=== PATIENT | female | born 1975 | race Caucasian/White ===

== ENCOUNTER 2022-10-01 00:42 | Observation (INO) | payer OTHER ==
[2022-10-01] MEDS ORDERED: SODIUM CHLORIDE 0.9% 1,000 ML IV STA (01:09)
[2022-10-01] MEDS ORDERED: diphenhydrAMINE 50 MG/ML 1 ML VIAL IVP STA (01:13)
[2022-10-01] MEDS ORDERED: methylPREDNISolone SOD SUCCI 125 MG/2 ML VIAL IV STA (01:13)
[2022-10-01] MEDS ORDERED: FAMOTIDINE 20 MG/2 ML VIAL IV STA (01:13)
--- NOTE | 2022-10-01 01:22 | ED ---
Neuro HPI - General Chief Complaint: Neuro Symptoms/Deficit Stated Complaint: Facial and extremity numbness, TIA history Time Seen by Provider: 10/01/22 01:03 Source: patient, family, RN notes reviewed Mode of arrival: ambulatory Limitations: no limitations - History of Present Illness Is the patient presenting with stroke symptoms?: No Last Known Well Date: 10/01/22 Last Known Well Time: 00:35 Initial Comments: Facial droop, right arm numbness This is a pleasant 46-year-old female presents to the emergency department complaining of bilateral arm numbness as well as left-sided facial droop. states they were in bed watching TV. He states he was rubbing her back when she sat up and started complaining of numbness, patient actually stating both arms. However then noted that she had some facial drooping could not speak appropriately. He states she started drooling out of the left side of her mouth. These symptoms went on for about 10 minutes then resolved. Patient now complaining of a mild headache, no other current complaints. Onset of symptoms 12:35 AM Duration of symptoms 10 minutes. no fever or chills, no changes in vision or hearing, no sore throat, no neck pain, no chest pain or shortness of breath, no abdominal pain, no nausea or vo miting, no changes in urination or bowel movements,, no extremity pain, no skin rashes or lesions. Past medical, surgical, social, and family history reviewed. Time: 00:35 Location: speech, left face, left arm, right arm History of same: No Place: home Severity: moderate Quality: numb, tingling, other (Resolved) Improves With: none Worsens With: none On Anticoagulants: No Context: sudden onset Associated Symptoms: denies other symptoms Treatments Prior to Arrival: none - Related Data Home Medications: Previous Rx's Medication Instructions Recorded Albuterol Inhaler [Ventolin Hfa 1 - 2 puff INHALATION Q4-6H PRN #1 06/19/15 Inhaler] inhaler Albuterol Nebulized [Ventolin 2.5 mg INHALATION Q4H PRN 10 Days 06/19/15 Nebulized] nebu predniSONE [Deltasone] 60 mg PO DAILY 5 Days tab 06/19/15 Allergies/Adverse Reactions: Allergies Allergy/AdvReac Type Severity Reaction Status Date / Time iodine Allergy Unknown Verified 10/01/22 00:49 seafood Allergy Unknown Uncoded 10/01/22 00:49 Review of Systems ROS Statement: Those systems with pertinent positive or pertinent negative responses have been documented in the HPI. ROS Other: All systems not noted in ROS Statement are negative. General Exam - General Exam Comments Initial Comments: Patient in no distress currently. Vital signs are reviewed. Capillary refill less than 2 seconds. Does not appear to be ill or toxic. Cranial nerves II through XII are intact. Limitations: no limitations General appearance: alert, in no apparent distress Head exam: Present: atraumatic, normocephalic, normal inspection Eye exam: Present: normal appearance, PERRL, EOMI. Absent: scleral icterus, conjunctival injection, periorbital swelling ENT exam: Present: normal exam, normal oropharynx, mucous membranes moist, TM's normal bilaterally, normal external ear exam. Absent: mucous membranes dry Neck exam: Present: normal inspection, full ROM. Absent: tenderness, me ningismus, lymphadenopathy Respiratory exam: Present: normal lung sounds bilaterally. Absent: respiratory distress, wheezes, rales, rhonchi, stridor, chest wall tenderness, accessory muscle use, decreased breath sounds, prolonged expiratory Cardiovascular Exam: Present: regular rate, normal rhythm, normal heart sounds. Absent: systolic murmur, diastolic murmur, rubs, gallop, clicks GI/Abdominal exam: Present: soft, normal bowel sounds. Absent: distended, tenderness, guarding, rebound, rigid Extremities exam: Present: normal inspection, full ROM, normal capillary refill. Absent: tenderness, pedal edema, joint swelling, calf tenderness Back exam: Present: normal inspection Neurological exam: Present: alert, oriented X3, CN II-XII intact, normal gait. Absent: motor sensory deficit Expanded Patient oriented to: Present: person, place, time Speech: Present: fluid speech Cranial nerves: EOM's Intact: Normal, Gag Reflex: Normal, Tongue Deviation: Normal, Nystagmus: Normal, Facial Sensation: Normal, Facial Palsy with Forehead Movement: Normal, Facial Palsy without Forehead Movement: Normal Cerebellar function: Finger to Nose: Normal, Heel to Guerin: Normal Sensory exam: Upper Extremity Light Touch: Normal, Upper Extremity Pin Prick: Normal, Lower Extremity Light Touch: Normal, Lower Extremity Pin Prick: Normal Motor strength exam: RUE: 5, LUE: 5, RLE: 5, LLE: 5 Eye Response: (4) open spontaneously Motor Response: (6) obeys commands Verbal Response: (5) oriented [place] Total: 15 Psychiatric exam: Present: normal affect, normal mood Skin exam: Present: warm, dry, intact, normal color. Absent: rash Stroke MDM - Lab Data Result diagrams: 10/01/22 01:18 10/01/22 01:18 Lab Results 10/01/22 10/01/22 10/01/22 Range/Units 01:18 01:18 01:18 WBC 10.5 (3.8-10.6) k/uL RBC 4.37 (3.80-5.40) m/uL Hgb 14.0 (11.4-16.0) gm/dL Hct 41.5 (34.0-46.0) % MCV 94.9 (80.0-100.0) fL MCH 32.1 (25.0-35.0) pg MCHC 33.8 (31.0-37.0) g/dL RDW 12.8 (11.5-15.5) % Plt Count 284 (150-450) k/uL MPV 9.3 Neutrophils % 61 % Lymphocytes % 31 % Monocytes % 5 % Eosinophils % 2 % Basophils % 1 % Neutrophils # 6.3 (1.3-7.7) k/uL Lymphocytes # 3.2 (1.0-4.8) k/uL Monocytes # 0.5 (0-1.0) k/uL Eosinophils # 0.2 (0-0.7) k/uL Basophils # 0.1 (0-0.2) k/uL PT 9.9 (9.0-12.0) sec INR 0.9 (<1.2) APTT 29.1 (22.0-30.0) sec Sodium 136 L (137-145) mmol/L Potassium 4.3 (3.5-5.1) mmol/L Chloride 106 (98-107) mmol/L Carbon Dioxide 22 (22-30) mmol/L Anion Gap 8 mmol/L BUN 11 (7-17) mg/dL Creatinine 0.54 (0.52-1.04) mg/dL Est GFR (CKD-EPI)AfAm >90 (>60 ml/min/1.73 sqM) Est GFR (CKD-EPI)NonAf >90 (>60 ml/min/1.73 sqM) Glucose 117 H (74-99) mg/dL POC Glucose (mg/dL) (70-110) mg/dL POC Glu Janitor And Cleaner ID Calcium 9.9 (8.4-10.2) mg/dL Total Bilirubin 0.3 (0.2-1.3) mg/dL AST 25 (14-36) U/L ALT 19 (4-34) U/L Alkaline Phosphatase 75 (38-126) U/L Troponin I (0.000-0.034) ng/mL Total Protein 7.0 (6.3-8.2) g/dL Albumin 4.5 (3.5-5.0) g/dL 10/01/22 10/01/22 Range/Units 01:18 01:24 WBC (3.8-10.6) k/uL RBC (3.80-5.40) m/uL Hgb (11.4-16.0) gm/dL Hct (34.0-46.0) % MCV (80.0-100.0) fL MCH (25.0-35.0) pg MCHC (31.0-37.0) g/dL RDW (11.5-15.5) % Plt Count (150-450) k/uL MPV Neutrophils % % Lymphocytes % % Monocytes % % Eosinophils % % Basophils % % Neutrophils # (1.3-7.7) k/uL Lymphocytes # (1.0-4.8) k/uL Monocytes # (0-1.0) k/uL Eosinophils # (0-0.7) k/uL Basophils # (0-0.2) k/uL PT (9.0-12.0) sec INR (<1.2) APTT (22.0-30.0) sec Sodium (137-145) mmol/L Potassium (3.5-5.1) mmol/L Chloride (98-107) mmol/L Carbon Dioxide (22-30) mmol/L Anion Gap mmol/L BUN (7-17) mg/dL Creatinine (0.52-1.04) mg/dL Est GFR (CKD-EPI)AfAm (>60 ml/min/1.73 sqM) Est GFR (CKD-EPI)NonAf (>60 ml/min/1.73 sqM) Glucose (74-99) mg/dL POC Glucose (mg/dL) 114 H (70-110) mg/dL POC Glu Janitor And Cleaner ID Luda Avila Calcium (8.4-10.2) mg/dL Total Bilirubin (0.2-1.3) mg/dL AST (14-36) U/L ALT (4-34) U/L Alkaline Phosphatase (38-126) U/L Troponin I <0.012 (0.000-0.034) ng/mL Total Protein (6.3-8.2) g/dL Albumin (3.5-5.0) g/dL - NIH Stroke Scale 1a. Level of Consciousness: (0) alert 1b. LOC Questions: (0) answers correctly 1c. LOC Commands: (0) performs tasks correctly 2. Best Gaze: (0) normal 3. Visual: (0) no visual loss 4. Facial Palsy: (0) normal symmetrical movement 5a. Motor Arm Left: (0) no drift 5b. Motor Arm Right: (0) no drift 6a. Motor Leg Left: (0) no drift 6b. Motor Leg Right: (0) no drift 7. Limb Ataxia: (0) absent 8. Sensory: (0) normal 9. Best Language: (0) no aphasia 10. Dysarthria: (0) normal 11. Extinction/Inattention: (0) no abnormality - Thrombolytic Inclusion/Exclusion Thrombolytic Inclusion Criteria: Symptom Onset < 4.5 h - Medical Decision Making Patient presented with symptomology of transient ischemic attack. Patient had trouble speaking, left sided facial droop and some. Seizures in both arms according to her. This lasted about 10 minutes from 12:35 AM to 12:45 AM. Symptoms resolved by the time I saw the patient. Computed tomography scan of the brain, CT angiogram of the brain and neck were all normal. I didn't interpret these films myself as well. Concur with radiology. Aspirin 325 mg given. Patient will be admitted to [facility]. The case was discussed in detail with ED attending physician. Presentation, findings, treatment plan discussed in detail. Cone Operator Dr. Higgins - Radiology Data Radiology results: pending - EKG Data EKG shows normal: sinus rhythm (77), axis (normal), intervals (nl), QRS complexes (nl), ST-T waves (nl) Rate: normal Past Medical History Past Medical History: Asthma, CVA/TIA, Pneumonia History of Any Multi-Drug Resistant Organisms: None Reported Past Surgical History: Orthopedic Surgery, Tonsillectomy Past Psychological History: No Psychological Hx Reported Past Alcohol Use History: None Reported Past Drug Use History: None Reported Course Vital Signs 10/01/22 00:49 Temperature 98.9 F Pulse Rate 101 H Respiratory 16 Rate Blood Pressure 140/80 O2 Sat by Pulse 98 Oximetry - Reevaluation(s) Reevaluation #1: 10/01/22 02:33 Medical record is reviewed Symptoms are improved here in the emergency department, NIH score is 0 Patient is informed of results and questions answered Patient in no distress Reevaluation #2: 10/01/22 03:04 Patient reevaluated, and I score is 0. Patient still complaining of headache. Patient will be admitted for TIA and neurology consultation. - Consultations Consultation #1: Discussed with Dr. Merida Disposition Clinical Impression: Transient ischemic attack (TIA) Disposition: ADMITTED IP TO THIS HOSP Condition: Stable Is patient prescribed a controlled substance at d/c from ED?: No Referrals: None,Stated [Primary Care Provider] - 1-2 days Time of Disposition: 02:34 Decision to Admit Reason: Admit from EC Decision Time: 02:34
[2022-10-01 01:26] LABS: Glucose,Whole Blood 114 mg/dL (70-110)
[2022-10-01 01:37] LABS: Basophils # (A) 0.1 k/uL (0-0.2); Basophils % (A) 1 %; Eosinophils # (A) 0.2 k/uL (0-0.7); Eosinophils % (A) 2 %; HCT 41.5 % (34.0-46.0); Lymphocytes # (A) 3.2 k/uL (1.0-4.8); Lymphocytes % (A) 31 %; MCH 32.1 pg (25.0-35.0); MCHC 33.8 g/dL (31.0-37.0); MCV 94.9 fL (80.0-100.0); Mean Platelet Volume 9.3; Monocytes # (A) 0.5 k/uL (0-1.0); Monocytes % (A) 5 %; Neutrophils # (A) 6.3 k/uL (1.3-7.7); Neutrophils % (A) 61 %; Platelet Count 284 k/uL (150-450); RBC 4.37 m/uL (3.80-5.40); RDW 12.8 % (11.5-15.5); WBC 10.5 k/uL (3.8-10.6)
[2022-10-01 02:15] LABS: ALT 19 U/L (4-34); African American GFR (CKD) >90 (>60 ml/min/1.73 sqM); Albumin 4.5 g/dL (3.5-5.0); Anion Gap 8 mmol/L; Blood Urea Nitrogen 11 mg/dL (7-17); Calcium 9.9 mg/dL (8.4-10.2); Carbon Dioxide 22 mmol/L (22-30); Chloride 106 mmol/L (98-107); Glucose 117 mg/dL (74-99); INR 0.9 (<1.2); Non-African American GFR(CKD) >90 (>60 ml/min/1.73 sqM); Partial Thromboplastin Time 29.1 sec (22.0-30.0); Prothrombin Time 9.9 sec (9.0-12.0); Sodium 136 mmol/L (137-145); Total Bilirubin 0.3 mg/dL (0.2-1.3)
[2022-10-01 02:23] LABS: AST 25 U/L (14-36); Alkaline Phosphatase 75 U/L (38-126); Potassium 4.3 mmol/L (3.5-5.1)
--- NOTE | 2022-10-01 02:35 | CT ---
EXAMINATION TYPE: CT brain wo con DATE OF EXAM: 10/01/2022 COMPARISON: None HISTORY: Neuro deficit, acute, stroke suspected CT DLP: 1526.5 mGycm Automated exposure control for dose reduction was used. Images obtained of the brain with no contrast. There is some cerebral cortical atrophy. There is no mass effect or midline shift. No sign of intracr anial hemorrhage. The calvarium is intact. Skull base is intact. There is normal aeration of the mast oid sinuses. IMPRESSION: Negative unenhanced head CT scan.
--- NOTE | 2022-10-01 02:48 | CT ---
EXAMINATION TYPE: CT angio head neck DATE OF EXAM: 10/01/2022 COMPARISON: None HISTORY: Neuro deficit, acute, stroke suspected CT DLP: 1526.5 mGycm Automated exposure control for dose reduction was used. CONTRAST: Performed with IV Contrast, patient injected with 65ml mL of Isovue 370. Images obtained from the aortic arch to the vertex of the brain with the IV contrast. There are 3-D p ost processed images. There is normal branching pattern of the great vessels and aortic arch. There is bilateral arterial f low in the subclavian arteries. There is arterial flow in the common internal and external carotid ar teries bilaterally. There is minimal plaque formation at the carotid artery bifurcations. There is ar terial flow in both vertebral arteries. There is arterial flow in the vertebrobasilar artery system. No evidence of carotid or vertebral garett ry aneurysm or dissection There is arterial flow in the anterior middle and posterior cerebral arteries bilaterally. No mass ef fect. No evidence of intracranial aneurysm or neovascularity. There is normal enhancement of the veno us sinuses. No evidence of intracranial hemodynamic arterial stenosis. IMPRESSION: Minimal plaque at the carotid artery bifurcations. No evidence of any significant stenosis. Negative CT angiogram of the brain.
--- NOTE | 2022-10-01 02:50 | XR ---
EXAMINATION TYPE: XR chest 1V portable DATE OF EXAM: 10/01/2022 COMPARISON: 09/13/2012 HISTORY: Altered mental status TECHNIQUE: Single view FINDINGS: Heart is normal. Lungs are clear of infiltrate. No heart failure. There are no hilar masses . There are chest leads. Bony thorax is intact. IMPRESSION: No active cardiopulmonary disease. Normal heart. There is clearing of the right middle lo be infiltrate compared to old exam.
[2022-10-01] MEDS ORDERED: ASPIRIN 325 MG TAB PO STA (03:00)
[2022-10-01] MEDS ORDERED: ACETAMINOPHEN TAB 500 MG TAB PO STA (03:03)
[2022-10-01] MEDS ORDERED: ACETAMINOPHEN TAB 325 MG TAB PO PRN (03:06)
--- NOTE | 2022-10-01 04:07 | P.HPIM ---
History of Present Illness H&P Date: 10/01/22 The patient is a 46-year-old female with no known PMH who presents to the emergency room with strokelike symptoms. The patient reports that she was taking a nap and when she woke up at around midnight, she noticed that she was unable to speak as her face felt numb, accompanied by left-sided facial droop and bilateral arm weakness. The patient was reportedly laying next to her who also noticed facial droop that the patient was not speaking properly. The patient was also reportedly drooling on the left side of the mouth. All of the above symptoms resolved spontaneously within 5-10 minutes and the patient returned to her baseline. She did endorse a mild diffuse headache a t the time of interview, rated a 5 out of 10. He denied experiencing chest pain, shortness of breath, nausea, vomiting, abdominal pain, diarrhea. CT brain and CT neck angiogram were unremarkable with chest x-ray also unremarkable. EKG revealed sinus rhythm with short AL interval at 77 bpm. Laboratory evaluation was remarkable for troponin less than 0.012. Review of systems: Pertinent positives and negatives as discussed in HPI, a complete review of systems was performed and all other systems are negative. Physical examination: General: non toxic, no distress, appears at stated age, overweight Derm: no unusual rashes/lesions, warm Head: atraumatic, normocephalic, symmetric Eyes: EOMI, no lid lag, anicteric sclera, pupils equal round reactive to light ENT: Nose and ears atraumatic Neck: No cervical lymphadenopathy, trachea midline, supple Mouth: no lip lesion, mucus membranes moist Cardiovascular: S1S2 reg, no murmur, positive dorsalis pedis pulse bilateral, no edema Lungs: CTA bilateral, no rhonchi, no rales, no accessory muscle use Abdominal: soft, nontender to palpation, no guarding Ext: muscle strength 5 out of 5 in all 4 extremities grossly, no gross muscle at rophy, no contractures, Neuro: CN II-XI grossly intact, no gross focal neuro deficits Psych: Alert, oriented, appropriate affect Assessment/plan Suspected TIA -Cardiac monitoring -Echocardiogram -Neuro checks -Neurology consulted -Aspirin, statin DVT prophylaxis -Heparin subcu The patient is admitted with an anticipated les than 2 midnight stay for evaluation of TIA. CODE STATUS: Full Code Discussed with: Patient Anticipated discharge date: in am Anticipated discharge place: Home Past Medical History Past Medical History: Asthma, CVA/TIA, Pneumonia History of Any Multi-Drug Resistant Organisms: None Reported Past Surgical History: Orthopedic Surgery, Tonsillectomy Past Psychological History: No Psychological Hx Reported Past Alcohol Use History: None Reported Past Drug Use History: None Reported - Past Family History Mother Family Medical History: Hypertension Medications and Allergies Home Medications Medication Instructions Recorded Confirmed Type Albuterol Inhaler [Ventolin Hfa 1 - 2 puff INHALATION Q4-6H PRN #1 06/19/15 Rx Inhaler] inhaler Albuterol Nebulized [Ventolin 2.5 mg INHALATION Q4H PRN 10 Days 06/19/15 Rx Nebulized] nebu predniSONE [Deltasone] 60 mg PO DAILY 5 Days tab 06/19/15 Rx Allergies Allergy/AdvReac Type Severity Reaction Status Date / Time iodine Allergy Unknown Verified 10/01/22 00:49 seafood Allergy Unknown Uncoded 10/01/22 00:49 Physical Exam Vitals: Vital Signs Temp Pulse Resp BP Pulse Ox 10/01/22 03:31 76 16 134/89 98 10/01/22 00:49 98.9 F 101 H 16 140/80 98 Intake and Output 09/30/22 09/30/22 10/01/22 14:59 22:59 06:59 Other: Weight 65.771 kg Results CBC & Chem 7: 10/01/22 01:18 10/01/22 01:18 Labs: Abnormal Lab Results - Last 24 Hours (Table) 10/01/22 10/01/22 Range/Units 01:18 01:24 Sodium 136 L (137-145) mmol/L Glucose 117 H (74-99) mg/dL POC Glucose (mg/dL) 114 H (70-110) mg/dL
[2022-10-01 04:16] VITALS: RESP 18
[2022-10-01 08:38] LABS: Appearance,Urine Clear (Clear); Bilirubin,Urine Negative (Negative); Blood,Urine Negative (Negative); Color,Urine Light Yellow; Glucose,Urine (UA) Negative (Negative); Ketones,Urine Negative (Negative); Leukocyte Esterase,Urine Negative (Negative); Nitrite,Urine Negative (Negative); Protein,Urine Negative (Negative); Specific Gravity,Urine 1.043 (1.001-1.035); Urobilinogen,Urine <2.0 mg/dL (<2.0)
[2022-10-01 08:47] LABS: Amphetamine Screen,Urine Not Detected (NotDetected); Barbiturate Screen,Urine Not Detected (NotDetected); Benzodiazepines Screen,Urine Not Detected (NotDetected); Cocaine Screen,Urine Not Detected (NotDetected); Methadone Screen, Urine Not Detected (NotDetected); Opiate Screen,Urine Not Detected (NotDetected); Oxycodone Screen, Urine Not Detected (NotDetected); Phencyclidine Screen,Urine Not Detected (NotDetected); Tricyclic Antidepressant,Urine Not Detected (NotDetected); Urn Cannabinoid Scrn Not Detected (NotDetected)
[2022-10-01] MEDS: HEPARIN SODIUM,PORCINE/PF 5,000 UNIT/0.5 ML SYRINGE SQ SCH ×2 (09:19→16:41)
[2022-10-01] MEDS ORDERED: CLOPIDOGREL 75 MG TAB PO SCH (09:30)
--- NOTE | 2022-10-01 09:57 | P.CNNES ---
History of Present Illness Consult date: 10/01/22 Requesting physician: Reggie Alvarado Reason for Consult: TIA History of Present Illness: This is a 46-year-old woman who presented emergency department on 10/01/2022 who noticed that she's having difficulty speaking and felt the face was numb on the left side as well as bilateral arm weakness. Patient stated she was laying on bed and just past midnight today, she could not speak, felt her tongue was heavy, left side of the face was drooping bilateral arm more weak and felt she had numbness from entire face up to knees. She stated prior to event she had headache over the bilateral temporal region and felt dull and denies radiation, headache was 10/10, denies photophobia, phonophobia, nausea or vomiting. The headache was constant and feels currently it is 6/10. Denies any prior history of migraine. She felt Her was next to her also noticed that the facial droop was drooping and was not speaking appropriately. but her symptoms resolved within 5-10 minutes and she was back to baseline. Denies history of stroke or seizure. She feels headache is more tolerable and denies any focal deficits. Denies illicit drug use. She smoke tobacco. Some of the workup during his hospital visit consisted of: CBC with differential is unremarkable Chemistry panel is the sodium is 136 glucose is 117 otherwise the rest of chemistry panel is unremarkable TSH is 1.550 Urine hCG is not detected Urine drug screen is positive for methamphetamine the rest is not detected CT of the head is reported as negative unenhanced head CT scan. CT angiography of the head and neck was reported as minimal plaque at the c arotid artery bifurcation. No evidence of any significant stenosis. Negative CT angiography of the brain. EKG is reported as sinus rhythm with short [place] interval. Borderline EKG. Since the patient symptoms resolved no IV TPA since the the risk outweighed the benefit. Review of Systems Review of system: The 12 point system was reviewed and apparent positive and negative per HPI. Past Medical History Past Medical History: Asthma, CVA/TIA, Pneumonia Additional Past Medical History / Comment(s): TIA History of Any Multi-Drug Resistant Organisms: None Reported Past Surgical History: Orthopedic Surgery, Tonsillectomy, Tubal Ligation Additional Past Surgical History / Comment(s): Right leg surgery. Past Anesthesia/Blood Transfusion Reactions: No Reported Reaction Past Psychological History: No Psychological Hx Reported Smoking Status: Vaper Past Alcohol Use History: None Reported Past Drug Use History: None Reported - Past Family History Mother Family Medical History: Hypertension Medications and Allergies Home Medications Medication Instructions Recorded Confirmed Type ePHEDrine sulfate [Bronkaid Max] 25 mg PO Q4H PRN 10/01/22 10/01/22 History Allergies Allergy/AdvReac Type Severity Reaction Status Date / Time Iodinated Contrast Media Allergy Anaphylaxis Verified 10/01/22 07:05 iodine Allergy Anaphylaxis Verified 10/01/22 07:05 shellfish derived [Shellfish] Allergy Anaphylaxis Verified 10/01/22 07:05 Physical Examination - Vital Signs Vital Signs: Vital Signs Temp Pulse Pulse Resp BP BP Pulse Ox 10/01/22 07:00 98.1 F 98 18 126/78 97 10/01/22 04:08 97.6 F 78 18 131/80 98 10/01/22 03:31 76 16 134/89 98 10/01/22 00:49 98.9 F 101 H 16 140/80 98 Intake and Output 09/30/22 10/01/22 10/01/22 22:59 06:59 14:59 Intake Total 100 Balance 100 Intake: Oral 100 Other: Voiding Method Toilet # Voids 0 Weight 65.771 kg GENERAL: The patient is lying in bed and is not in acute distress. CHEST: The heart rate is regular rate rhythm. No murmurs to auscultation. No carotid bruit bilaterally. LUNG: Clear to auscultation bilaterally no wheezing noted throughout. Not labored breathing. ABDOMEN/GI: Bowel sounds present in all 4 quadrants. No tenderness to palpation throughout. NEUROLOGICAL: Higher mental function: The patient is awake, alert, oriented to self, place and time. Patient is following commands. No aphasia and no neglect. Cranial nerves: The pupils are round, equal and reactive to light and accom modation. Visual bennett are full to confrontation throughout. Extraocular movement is intact no nystagmus is noted. Facial sensation is normal to touch throughout. The facial strength is normal throughout. Hearing is normal bilaterally to hand rub. Tongue is midline and moved [id number] without any difficulty. No dysarthria is noted. Shoulder shrug is normal bilaterally. Motor: The strength is 5 over 5 throughout. Normal tone and bulk. Cerebellum: Normal finger to nose heel to coles bilaterally. Sensation: Sensation is normal to touch throughout. Reflexes (right/left): 2+ throughout. Plantars are downgoing bilaterally. Results - Laboratory Findings CBC and BMP: 10/01/22 01:18 10/01/22 01:18 Abnormal Lab Findings: Abnormal Labs 10/01/22 10/01/22 10/01/22 01:03 01:18 01:24 Sodium 136 L Glucose 117 H POC Glucose (mg/dL) 114 H Ur Specific [place] 1.043 H U Methamphetamines Scrn Detected H Assessment and Plan Assessment: Transient expressive Aphasia, left facial weakness and bilateral arm weakness, numbness from face down to knees that lasted for 5-10 minutes: Due to either complicated migraine vs TIA Tobacco use Plan: In the ED the patient was given aspirin 325 once then was started on aspirin 325 daily. In addition I start the patient on Plavix 75 mg a daily. The patient to be on dual antiplatelets of aspirin and Plavix for 21 days and after 21 days stop Plavix but continue aspirin. She was started on Lipitor 80 mg daily at bedtime for secondary stroke prophylaxis by the primary team by decreasing to 40 mg since I don't feel she needs a high dose. 2-D echo, lipid panel is ordered and is pending. I ordered MRI of the brain w/ and w/o to rule out any underlying ischemia not seen on CT vs any mass especially with new onset headache. If the patient continues to have symptoms recommend routine EEG. Currently headache is improving and denies history of migraine but if down line has further headache/migraine recommended prophylaxis and abortive medication and to be looked into by her neurologist as outpatient. PT OT and REGISTERED NURSE FLOAT POOL is consulted Continue neuro checks On cardiac monitoring We'll defer the rest of the medical management to primary team Patient was counseled on smoking cessation. For DVT prophylaxis is on subcu heparin 5000 units every hours Recommend the patient follow up with a neurologist within 1-2 weeks. The plan is discussed with patient and primary team. Thank you consultation Time with Patient: Greater than 30
--- NOTE | 2022-10-01 12:01 | CA ---
Transthoracic Echo Report Name: Kailee Sullivan Age: 46 Gender: F : 1975 Exam Date: 10/01/2022 07:59 Exam Location: [facility] Ht (in): 62 Wt (lb): 145 Ordering Physician: Reggie Alvarado Attending/Referring Phys: Laminator Hand [place] RDCS Procedure CPT: Indications: Thrombus Cardiac Hx: Technical Quality: Fair Contrast 1: Total Dose (mL): Contrast 2: Total Dose (mL): MEASUREMENTS (Male / Female) Normal Values 2D ECHO LV Diastolic Diameter PLAX 3.8 cm 4.2 - 5.9 / 3.9 - 5.3 cm LV Systolic Diameter PLAX 2.5 cm IVS Diastolic Thickness 1.3 cm 0.6 - 1.0 / 0.6 - 0.9 cm LVPW Diastolic Thickness 1.1 cm 0.6 - 1.0 / 0.6 - 0.9 cm LV Relative Wall Thickness 0.6 RV Internal Dim ED PLAX 3.0 cm LA Volume 40.5 cm??? 18 - 58 / 22 - 52 cm??? M-MODE Aortic Root Diameter MM 2.9 cm LA Systolic Diameter MM 2.6 cm LA Ao Ratio MM 0.9 AV Cusp Separation MM 1.8 cm DOPPLER AV Peak Velocity 145.6 cm/s AV Peak Gradient 8.5 mmHg AV Mean Velocity 103.9 cm/s AV Mean Gradient 4.8 mmHg AV Velocity Time Integral 26.5 cm LVOT Peak Velocity 126.3 cm/s LVOT Peak Gradient 6.4 mmHg LVOT Velocity Time Integral 24.6 cm MV Area PHT 3.2 cm??? Mitral E Point Velocity 72.7 cm/s Mitral A Point Velocity 100.9 cm/s Mitral E to A Ratio 0.7 MV Deceleration Time 235.1 ms MV E' Velocity 7.1 cm/s Mitral E to MV E' Ratio 10.3 TR Peak Velocity 233.2 cm/s TR Peak Gradient 21.8 mmHg Right Ventricular Systolic Press 25.7 mmHg FINDINGS Left Ventricle Mildly increased left ventricular wall thickness. Normal left ventricular systolic function with no obvious regional wall motion abnormalities. Left ventricular ejection fraction is estimated at 55-60 %. Right Ventricle Normal right ventricular size and function. Right ventricular systolic pressure within normal limits. Right Atrium Normal right atrial size. Left Atrium Normal left atrial size. Mitral Valve Structurally normal mitral valve. No mitral stenosis. Trace mitral regurgitation. Aortic Valve Trileaflet aortic valve. No aortic valve stenosis or regurgitation. Tricuspid Valve Structurally normal tricuspid valve. Mild tricuspid regurgitation. Pulmonic Valve Trace pulmonic regurgitation. Pericardium No pericardial effusion. Aorta Normal size aortic root and proximal ascending aorta. CONCLUSIONS Normal biventricular dimension and systolic function Previewed by: Dr. Osmel Lamb MD (Electronically Signed) Final Date: 01 October 2022 12:00
[2022-10-01 13:32] VITALS: BP 113/62; PULSE 94; TEMP 98.2
--- NOTE | 2022-10-01 14:45 | MR ---
EXAMINATION TYPE: MR brain wo/w con DATE OF EXAM: 10/01/2022 COMPARISON: CT head 10/01/2022, CTA head 10/01/2022. HISTORY: Headache, weakness and numbness of both sides of body. TECHNIQUE: Multiplanar, multisequence images of the brain and brainstem is performed without and with IV contras t, utilizing 6.5 mL intravenous Gadavist . FINDINGS: Diffusion weighted images demonstrate no evidence of a recent infarct or other diffusion ab normality. There is no extra-axial fluid collection. A few scattered T2/FLAIR hyperintense foci with in the periventricular and subcortical white matter. Remote lacunar injury within the left parietal l obe. The ventricular system and cisternal spaces are normal in size and appearance. The brain volum e is age appropriate. Midline structures demonstrate normal morphology. The craniocervical junction appears within normal limits. Post contrast images demonstrate no abnormal enhancement. The dural venous sinuses appear pa tent. The visualized sinuses are clear and the globes are intact. IMPRESSION: 1. No evidence of acute ischemia or abnormal enhancement. 2. Few scattered periventricular and subcortical white matter T2/FLAIR hyperintense foci likely rela rashaad to chronic small vessel ischemic disease. Remote left parietal lobe lacunar injury. Demyelination is also considered in the differential but thought to be less likely with no active enhancement.
--- NOTE | 2022-10-01 16:13 | P.DS ---
Providers Date of admission: 10/01/22 03:15 Expected date of discharge: 10/01/22 Attending physician: Lara Merida MD Consults: 10/01/22 03:07 Consult Physician Urgent Consulting Provider: Abad Rodrigez Consult Reason/Comments: TIA Do you want consulting provider notified?: Yes, Notify in am Primary care physician: Stated None Hospital Course: The patient is a 46-year-old female with no known PMH who presents to the emergency room with strokelike symptoms. The patient reports that she was taking a nap and when she woke up at around midnight, she noticed that she was unable to speak as her face felt numb, accompanied by left-sided facial droop and bilateral arm weakness. The patient was reportedly laying next to her who also noticed facial droop that the patient was not speaking properly. The patient was also reportedly drooling on the left side of the mouth. All of the above symptoms resolved spontaneously within 5-10 minutes and the patient returned to her baseline. She did endorse a mild diffuse headache at the time of interview, rated a 5 out of 10. He denied experiencing chest pain, shortness of breath, nausea, vomiting, abdominal pain, diarrhea. CT brain and CT neck angiogram were unremarkable with chest x-ray also unremarkable. EKG revealed sinus rhythm with short NC interval at 77 bpm. Laboratory evaluation was remarkable for troponin less than 0.012. Neurology was consulted and recommended MRI brain, echocardiogram, lipid panel. She was also started on Lipitor. Echocardiogram showed EF of 55-60% with no regional wall motion abnormalities. MRI brain showed no acute ischemia, scattered periventricular and subcortical white matter likely chronic small vessels kidney disease, remote left parietal lobe lacunar injury. The case was discussed with Dr. Rodrigez recommended outpatient neurology follow-up to rule out demyelination. Patient was seen and examined this morning. She reports headache related to caffeine withdrawal. Confusion, facial droop, weakness has resolved. She denies any chest pain, shortness of breath or palpitations. No nausea or vomiting. No fever or chills. She is advised follow-up with her PCP within 1-2 days of discharge. She is advised to follow-up with neurology within 1 week of discharge. She is to continue aspirin and Lipitor indefinitely. Neurology is recommended Plavix for the next 21 days. Pertinent studies include brain CT, CTA head and neck, echocardiogram, brain MRI General: non toxic, no distress, appears at stated age, overweight Derm: no unusual rashes/lesions, warm Head: atraumatic, normocephalic, symmetric Eyes: EOMI, no lid lag, anicteric sclera ENT: Nose and ears atraumatic Neck: No cervical lymphadenopathy, trachea midline, supple Mouth: no lip lesion, mucus membranes moist Cardiovascular: S1S2 reg, no murmur, no edema Lungs: CTA bilateral, no rhonchi, no rales, no accessory muscle use Ext: muscle strength 5 out of 5 in all 4 extremities grossly, no gross muscle atrophy, no contractures, Neuro: no gross focal neuro deficits Psych: Alert, oriented, appropriate affect Discharge diagnosis: #Transient expressive aphasia #Suspected TIA vs complex migraine #Smoker #Positive UDS Patient Condition at Discharge: Stable Plan - Discharge Summary New Discharge Prescriptions: New Atorvastatin [Lipitor] 40 mg PO HS #30 tab Aspirin 81 mg PO DAILY #30 tab Clopidogrel [Plavix] 75 mg PO DAILY #30 tab Discontinued ePHEDrine sulfate [Bronkaid Max] 25 mg PO Q4H PRN PRN Reason: Shortness Of Breath Discharge Medication List Aspirin 81 mg PO DAILY #30 tab 10/01/22 [Rx] Atorvastatin [Lipitor] 40 mg PO HS #30 tab 10/01/22 [Rx] Clopidogrel [Plavix] 75 mg PO DAILY #30 tab 10/01/22 [Rx] Follow up Appointment(s)/Referral(s): Marco Ledbetter MD [REFERRING] - 1 Week None,Stated [Primary Care Provider] - 1-2 days Activity/Diet/Wound Care/Special Instructions: Diet: Cardiac Follow up with your PCP within 1-2 days of DC. FU with Neurology within 1 week of DC. Take all medications as advised. Take aspirin and Plavix for 21 days. After 21 days, discontinue Plavix and continue taking aspirin. Come back to the ED for worsening symptoms, slurred speech, lightheadedness, numbness/weakness/tinging of the extremities. Discharge Disposition: HOME SELF-CARE
[2022-10-01] MEDS ORDERED: ATORVASTATIN 40 MG TAB PO SCH (21:00)
[2022-10-01] MEDS ORDERED: ATORVASTATIN 80 MG TAB PO SCH (21:00)
[2022-10-02] MEDS ORDERED: ASPIRIN 81 MG PO SCH (09:00)
[2022-10-02] MEDS ORDERED: ASPIRIN 325 MG TAB PO SCH (09:00)
== END 2022-10-01 17:00 | disposition home or self-care (01) ==
LOC: EC 00:42 → 6NMEDSUR 03:15
PROVIDERS: ADMIT Internal Medicine; ATTEND Internal Medicine
DX: R47.01 Aphasia (principal); I08.1 Rheumatic disorders of both mitral and tricuspid valves; I37.1 Nonrheumatic pulmonary valve insufficiency; F17.200 Nicotine dependence, unspecified, uncomplicated; Z86.73 Personal history of transient ischemic attack (TIA), and cerebral infarction without residual deficits; Z82.49 Family history of ischemic heart disease and other diseases of the circulatory system; Z98.51 Tubal ligation status; Z88.8 Allergy status to other drugs, medicaments and biological substances; Z32.02 Encounter for pregnancy test, result negative
CPT/HCPCS: 36415; 93005; 93306; 97161; 97165; 92523; 80053; 84443; 84484; 85025; 85610; 85730; 81003; 81025; 80306; 71045; 70496; 70450; 70498; 70553; G0378; J1200; J2930; A9585; Q9967; J1644; 96361; 96372; 96374; 96375; 99285

== ENCOUNTER 2023-08-24 08:27 | Observation (INO) | payer BC, OTHER ==
[2023-08-24] MEDS ORDERED: ALBUTEROL NEBULIZED 2.5 MG/3 ML INHALATION STA (08:56)
[2023-08-24] MEDS ORDERED: methylPREDNISolone SOD SUCCI 125 MG/2 ML VIAL IV STA (08:56)
[2023-08-24] MEDS ORDERED: IPRATROPIUM 0.5 MG/2.5 ML NEBU INHALATION STA (08:56)
[2023-08-24] MEDS ORDERED: SODIUM CHLORIDE 0.9% 500 ML 500 ML IV STA (08:56)
--- NOTE | 2023-08-24 09:19 | ED ---
General Adult HPI - General Chief complaint: Shortness of Breath Stated complaint: MARY Time Seen by Provider: 08/24/23 08:30 Source: patient, RN notes reviewed, old records reviewed Mode of arrival: ambulatory Limitations: no limitations - History of Present Illness Initial comments: This a 47-year-old female with a past medical history significant for smoking. Patient states the last month she has been battling shortness of breath and cough. Patient states it started iwith congestion and now it is moved down into her lungs where she is coughing quite extensively and is very short of breath with any kind of exertion. Patient states she hasn't needed to use inhaler and at least a few years. Patient states she does continue to smoke. Patient denies fever chills. Patient states she has having quite a bit of sputum production as well. - Related Data Home Medications Medication Instructions Recorded Confirmed No Known Home Medications 08/24/23 08/24/23 Allergies Allergy/AdvReac Type Severity Reaction Status Date / Time Iodinated Contrast Media Allergy Anaphylaxis Verified 08/24/23 10:34 iodine Allergy Anaphylaxis Verified 08/24/23 10:34 shellfish derived [Shellfish] Allergy Anaphylaxis Verified 08/24/23 10:34 Review of Systems ROS Statement: Those systems with pertinent positive or pertinent negative responses have been documented in the HPI. ROS Other: All systems not noted in ROS Statement are negative. Past Medical History Past Medical History: Asthma, CVA/TIA, Pneumonia Additional Past Medical History / Comment(s): TIA History of Any Multi-Drug Resistant Organisms: None Reported Past Surgical History: Orthopedic Surgery, Tonsillectomy, Tubal Ligation Additional Past Surgical History / Comment(s): Right leg surgery. Past Anesthesia/Blood Transfusion Reactions: No Reported Reaction Past Psychological History: No Psychological Hx Reported Smoking Status: Vaper Past Alcohol Use History: None Reported Past Drug Use History: None Reported - Past Family History Mother Family Medical History: Hypertension General Exam - General Exam Comments Initial Comments: GENERAL: Patient is well-developed and well-nourished. Patient is nontoxic and well- hydrated and is in mild distress. ENT: Neck is soft and supple. No significant lymphadenopathy is noted. Oropharynx is clear. Moist mucous membranes. Neck has full range of motion without eliciting any pain. EYES: The sclera were anicteric and conjunctiva were pink and moist. Extraocular movements were intact and pupils were equal round and reactive to light. Eyelids were unremarkable. PULMONARY: expiratory wheezing diffusely CARDIOVASCULAR: There is a regular rate and rhythm without any murmurs gallops or rubs. ABDOMEN: Soft and nontender with normal bowel sounds. SKIN: Skin is clear with no lesions or rashes and otherwise unremarkable. NEUROLOGIC: Patient is alert and oriented x3. Cranial nerves II through XII are grossly intact. Motor and sensory are also intact. Normal speech, volume and content. Symmetrical smile. MUSCULOSKELETAL: Normal extremities with adequate strength and full range of motion. LYMPHATICS: No significant lymphadenopathy is noted PSYCHIATRIC: Normal psychiatric evaluation. Limitations: no limitations Course Vital Signs 08/24/23 08/24/23 08/24/23 08:29 08:42 09:40 Temperature 97.5 F L Pulse Rate 90 73 Respiratory 16 18 30 H Rate Blood Pressure 119/76 O2 Sat by Pulse 96 Oximetry Fraction of Inspired Oxygen (FIO2) 08/24/23 08/24/23 08/24/23 10:09 10:25 11:11 Temperature Pulse Rate 78 64 Respiratory 30 H 18 Rate Blood Pressure 111/94 O2 Sat by Pulse 99 Oximetry Fraction of 30 Inspired Oxygen (FIO2) Medical Decision Making - Medical Decision Making EKG is interpreted by myself. EKG shows a sinus rhythm at 79 bpm MT interval is on a 38 QRS is 92 QT interval 31 QTC is 416. Patient's symptoms elevation or depression. Was pt. sent in by a medical professional or institution ([facility], CHILD DAY CARE TEACHER, urgent care, hospital, or usp...) When possible be specific @ -No Did you speak to anyone other than the patient for history (EMS, parent, family, police, friend...)? What history was obtained from this source @ -No Did you review nursing and triage notes (agree or disagree)? Why? @ -I reviewed and agree with nursing and triage notes Were old charts reviewed (outside hosp., previous admission, EMS record, old EKG , old radiological studies, urgent care reports/EKG's, usp records)? Report findings @ -No old charts were reviewed Differential Diagnosis (chest pain, altered mental status, abdominal pain women, abdominal pain men, vaginal bleeding, weakness, fever, dyspnea, syncope, headache, dizziness, GI bleed, back pain, seizure, CVA, palpatations, mental health, musculoskeletal)? @ -Differential Dyspnea: Coronary syndrome, arrhythmia, tamponade, asthma, COPD, pulmonary embolism, pneumonia, pneumothorax, pulmonary effusion, anaphylaxis, diabetic ketoacidosis, flailed chest, pulmonary contusion, diaphragmatic rupture, anemia, neuromusc ular, this is not meant to be an all-inclusive list. EKG interpreted by me (3pts min.). @ -As above X-rays interpreted by me (1pt min.). @ -Chest x-ray shows a right middle lobe pneumonia CT interpreted by me (1pt min.). @ -None done U/S interpreted by me (1pt. min.). @ -None done What testing was considered but not performed or refused? (CT, X-rays, U/S, labs)? Why? @ -None What meds were considered but not given or refused? Why? @ -None Did you discuss the management of the patient with other professionals (professionals i.e. , PA, CHILD DAY CARE TEACHER, lab, RT, psych nurse, social insurance analyst, computer hardware technician, teacher, fire information officer, social work case manager)? Give summary @ -I spoke with Dr. Santoyo and he agreed to admit the patient Was smoking cessation discussed for >3mins.? @ -Yes Was critical care preformed (if so, how long)? @ -35 minutes Were there social determinants of health that impacted care today? How? (Homelessness, low income, unemployed, alcoholism, drug addiction, transportation, low edu. Level, literacy, decrease access to med. care, [place] [facility], rehab)? @ -No Was there de-escalation of care discussed even if they declined (Discuss DNR or withdrawal of care, Hospice)? DNR status @ -No What co-morbidities impacted this encounter? (DM, HTN, Smoking, COPD, CAD, Cancer, CVA, ARF, Chemo, Hep., AIDS, mental health diagnosis, sleep apnea, morbid obesity)? @ -None Was patient admitted / discharged? Hospital course, mention meds given and route, prescriptions, significant lab abnormalities, going to OR and other pertinent info. @ -Patient received multiple breathing treatments steroids and antibiotics in the emergency department. Patient improved only slightly and she was getting fatigue supple with the patient on BiPAP and patient was doing considerably better on BiPAP . I spoke with some physicians he agreed to admit the patient admitted the patient I continue the patient's antibiotic steroids and breathing treatments Undiagnosed new problem with uncertain prognosis? @ -No Drug Therapy requiring intensive monitoring for toxicity (Heparin, Nitro, Insulin, Cardizem)? @ -No Were any procedures done? @ -No Diagnosis/symptom? @ -Pneumonia Acute, or Chronic, or Acute on Chronic? @ -Acute Uncomplicated (without systemic symptoms) or Complicated (systemic symptoms)? @ -Complicated Side effects of treatment? @ -No Exacerbation, Progression, or Severe Exacerbation? @ -No Poses a threat to life or bodily function? How? (Chest pain, [place], [place], pneumonia, PE, COPD, DKA, ARF, appy, cholecystitis, CVA, Diverticulitis, Homicidal, Suicidal, threat to staff... and all critical care pts) @ -Yes this can lead to hypoxia and end organ dysfunction Diagnosis/symptom? @ -COPD exacerbation Acute, or Chronic, or Acute on Chronic? @ -Acute Uncomplicated (without systemic symptoms) or Complicated (systemic symptoms)? @ -Complicated Side effects of treatment? @ -none Exacerbation, Progression, or Severe Exacerbation] @ -no Poses a threat to life or bodily function? @ -Yes this can lead to hypoxia and end organ dysfunction - Lab Data Result diagrams: 08/24/23 09:29 08/24/23 09:29 Lab Results 08/24/23 08/24/23 08/24/23 Range/Units 09:29 09:29 09:29 WBC 14.3 H (3.8-10.6) k/uL RBC 4.10 (3.80-5.40) m/uL Hgb 13.2 (11.4-16.0) gm/dL Hct 39.3 (34.0-46.0) % MCV 96.0 (80.0-100.0) fL MCH 32.2 (25.0-35.0) pg MCHC 33.5 (31.0-37.0) g/dL RDW 13.2 (11.5-15.5) % Plt Count 456 H (150-450) k/uL MPV 8.8 Neutrophils % 72 % Lymphocytes % 20 % Monocytes % 4 % Eosinophils % 3 % Basophils % 0 % Neutrophils # 10.3 H (1.3-7.7) k/uL Lymphocytes # 2.9 (1.0-4.8) k/uL Monocytes # 0.5 (0-1.0) k/uL Eosinophils # 0.4 (0-0.7) k/uL Basophils # 0.0 (0-0.2) k/uL Sodium 141 (137-145) mmol/L Potassium 4.6 (3.5-5.1) mmol/L Chloride 103 (98-107) mmol/L Carbon Dioxide 24 (22-30) mmol/L Anion Gap 14 mmol/L BUN 4 L (7-17) mg/dL Creatinine 0.44 L (0.52-1.04) mg/dL Est GFR (CKD-EPI)AfAm >90 (>60 ml/min/1.73 sqM) Est GFR (CKD-EPI)NonAf >90 (>60 ml/min/1.73 sqM) Glucose 80 (74-99) mg/dL Plasma Lactic Acid Juan C 2.0 (0.7-2.0) mmol/L Calcium 10.1 (8.4-10.2) mg/dL Magnesium 1.9 (1.6-2.3) mg/dL Total Bilirubin 0.4 (0.2-1.3) mg/dL AST 20 (14-36) U/L ALT 14 (4-34) U/L Alkaline Phosphatase 100 (38-126) U/L Troponin I (0.000-0.034) ng/mL Total Protein 7.1 (6.3-8.2) g/dL Albumin 4.1 (3.5-5.0) g/dL Influenza Type A (PCR) (Not Detectd) Influenza Type B (PCR) (Not Detectd) RSV (PCR) (Not Detectd) SARS-CoV-2 (PCR) (Not Detectd) 08/24/23 08/24/23 Range/Units 09:29 09:29 WBC (3.8-10.6) k/uL RBC (3.80-5.40) m/uL Hgb (11.4-16.0) gm/dL Hct (34.0-46.0) % MCV (80.0-100.0) fL MCH (25.0-35.0) pg MCHC (31.0-37.0) g/dL RDW (11.5-15.5) % Plt Count (150-450) k/uL MPV Neutrophils % % Lymphocytes % % Monocytes % % Eosinophils % % Basophils % % Neutrophils # (1.3-7.7) k/uL Lymphocytes # (1.0-4.8) k/uL Monocytes # (0-1.0) k/uL Eosinophils # (0-0.7) k/uL Basophils # (0-0.2) k/uL Sodium (137-145) mmol/L Potassium (3.5-5.1) mmol/L Chloride (98-107) mmol/L Carbon Dioxide (22-30) mmol/L Anion Gap mmol/L BUN (7-17) mg/dL Creatinine (0.52-1.04) mg/dL Est GFR (CKD-EPI)AfAm (>60 ml/min/1.73 sqM) Est GFR (CKD-EPI)NonAf (>60 ml/min/1.73 sqM) Glucose (74-99) mg/dL Plasma Lactic Acid Juan C (0.7-2.0) mmol/L Calcium (8.4-10.2) mg/dL Magnesium (1.6-2.3) mg/dL Total Bilirubin (0.2-1.3) mg/dL AST (14-36) U/L ALT (4-34) U/L Alkaline Phosphatase (38-126) U/L Troponin I <0.012 (0.000-0.034) ng/mL Total Protein (6.3-8.2) g/dL Albumin (3.5-5.0) g/dL Influenza Type A (PCR) Not Detected (Not Detectd) Influenza Type B (PCR) Not Detected (Not Detectd) RSV (PCR) Not Detected (Not Detectd) SARS-CoV-2 (PCR) Not Detected (Not Detectd) Disposition Clinical Impression: Acute exacerbation of chronic obstructive pulmonary disease, Pneumonia Disposition: ADMITTED IP TO THIS [facility] Time of Disposition: 11:07
[2023-08-24 09:49] LABS: Basophils % (A) 0 %; Eosinophils # (A) 0.4 k/uL (0-0.7); Eosinophils % (A) 3 %; HCT 39.3 % (34.0-46.0); HGB 13.2 gm/dL (11.4-16.0); Lymphocytes # (A) 2.9 k/uL (1.0-4.8); Lymphocytes % (A) 20 %; MCH 32.2 pg (25.0-35.0); MCHC 33.5 g/dL (31.0-37.0); Mean Platelet Volume 8.8; Monocytes # (A) 0.5 k/uL (0-1.0); Monocytes % (A) 4 %; Neutrophils # (A) 10.3 k/uL (1.3-7.7); Neutrophils % (A) 72 %; Platelet Count 456 k/uL (150-450); RDW 13.2 % (11.5-15.5); WBC 14.3 k/uL (3.8-10.6)
--- NOTE | 2023-08-24 09:50 | XR ---
EXAMINATION TYPE: XR chest 2V DATE OF EXAM: 08/24/2023 COMPARISON: 10/01/2022 HISTORY: 47-year-old female shortness of breath, difficulty breathing TECHNIQUE: PA and lateral views FINDINGS: Heart normal size. Mild hyperinflation. Focal right midlung opacity marginated inferiorly by the michele r fissure. No pleural effusion. IMPRESSION: Right midlung pneumonia.
[2023-08-24 10:22] LABS: ALT 14 U/L (4-34); AST 20 U/L (14-36); African American GFR (CKD) >90 (>60 ml/min/1.73 sqM); Albumin 4.1 g/dL (3.5-5.0); Alkaline Phosphatase 100 U/L (38-126); Anion Gap 14 mmol/L; Blood Urea Nitrogen 4 mg/dL (7-17); Calcium 10.1 mg/dL (8.4-10.2); Carbon Dioxide 24 mmol/L (22-30); Chloride 103 mmol/L (98-107); Glucose 80 mg/dL (74-99); Magnesium 1.9 mg/dL (1.6-2.3); Non-African American GFR(CKD) >90 (>60 ml/min/1.73 sqM); Potassium 4.6 mmol/L (3.5-5.1); Sodium 141 mmol/L (137-145); Total Bilirubin 0.4 mg/dL (0.2-1.3); Total Protein 7.1 g/dL (6.3-8.2)
[2023-08-24] MEDS ORDERED: cefTRIAXone IN SWFI 1,000 MG/10 ML SYRINGE IVP STA (10:51)
[2023-08-24] MEDS ORDERED: NALOXONE 0.4 MG/ML 1 ML VIAL IVP PRN (11:07)
[2023-08-24] MEDS ORDERED: IPRATROPIUM-ALBUTEROL 3 ML NEB INHALATION PRN (11:07)
[2023-08-24] MEDS ORDERED: AZITHROMYCIN 500 MG in SODIUM CHLORIDE 0.9% 250 ML IVPB STA (11:08)
[2023-08-24] MEDS ORDERED: NICOTINE 21MG/24HR PATCH TRANSDERM STA (11:36)
[2023-08-24] MEDS: IPRATROPIUM-ALBUTEROL 3 ML NEB INHALATION SCH ×3 (11:36→19:48)
[2023-08-24 12:21] LABS: Glucose,Whole Blood 103 mg/dL (70-110)
[2023-08-24] MEDS ORDERED: ONDANSETRON 4 MG/2 ML VIAL IVP STA (12:29)
--- NOTE | 2023-08-24 16:52 | P.HPIM ---
History of Present Illness H&P Date: 08/24/23 Patient is a 47-year-old female with PMH of asthma and current smoker presenting to the ED for productive cough of green sputum and worsening shortness of breath that has been ongoing for the past 2 weeks. She has tried NyQuil and other [id number] medication which did not help. She has an albuterol inhaler and nebulizer at home. Her breathing got progressively worse today which prompted her to come to the ED. In the ED, she was noted to be tachypneic with a respiratory rate of 40. She was tachycardic with heart rate in the 90s. CBC showed leukocytosis of 14.3 with platelet count of 456. CMP was benign. Troponin less than 0.012. Lactic acid 2. Influenza, RSV, COVID-19 negative. EKG showed sinus rhythm with Q waves in V1 and V2. Chest x-ray showed right midlung pneumonia. Patient was started on BiPAP with improvement in her respiratory symptoms. Patient is admitted for treatment of pneumonia. Pertinent positives and negatives as discussed in HPI, a complete review of systems was performed and all other systems are negative. General: non toxic, no distress, appears at stated age Derm: warm, dry Head: atraumatic, normocephalic, symmetric Eyes: EOMI, no lid lag, anicteric sclera Mouth: no lip lesion, mucus membranes moist Cardiovascular: Tachycardic, no murmur Lungs: Expiratory wheezing bilateral, no rhonchi, no rales , no accessory muscle use Ext: no gross muscle atrophy, no edema, no contractures Neuro: no focal neuro deficits Psych: Alert, oriented, appropriate affect Acute hypoxic respiratory failure Sepsis related to community-acquired pneumonia Asthma exacerbation Nicotine dependence Based on my assessment of this patient, this patient meets a high complexity level of care. Patient has an acute diagnosis of respiratory failure secondary to community acquired pneumonia and asthma exacerbation that poses a threat to life or bodily function. Acute hypoxic respiratory failure: BiPAP PRN for SOB. Sepsis related to community-acquired pneumonia: Tachycardia, tachypnea, leukocytosis, + CXR. Rocephin 2g IV QD, Azithromycin 500 mg IV QD. Sputum and Blood culture. Telemetry monitoring. NS at 75 cc/hr. Asthma exacerbation: DuoNeb scheduled and PRN for SOB/wheezing. Solumedrol 60 mg IV Q6H. Pulmonary consult. Nicotine dependence: Offered nicotine patch. Quit. I have reviewed the following immigration consultant notes: I have reviewed the results of the following tests: CBC, CMP, Troponin, EKG, Flu, RSV, COVID, Lactic acid. I have ordered the following tests: Sputum and BCx. I have discussed the care of this patient with the following independent historian: I have independently interpreted the following test below: CXR as above. I have discussed the management of this patient with the following physician: Discussed with Dr. Andrade. Past Medical History Past Medical History: Asthma, CVA/TIA, Pneumonia Additional Past Medical History / Comment(s): TIA History of Any Multi-Drug Resistant Organisms: None Reported Past Surgical History: Orthopedic Surgery, Tonsillectomy, Tubal Ligation Additional Past Surgical History / Comment(s): Right leg surgery. Past Anesthesia/Blood Transfusion Reactions: No Reported Reaction Past Psychological History: No Psychological Hx Reported Smoking Status: Vaper Past Alcohol Use History: None Reported Past Drug Use History: None Reported - Past Family History Mother Family Medical History: Hypertension Medications and Allergies Home Medications Medication Instructions Recorded Confirmed Type No Known Home Medications 08/24/23 08/24/23 History Allergies Allergy/AdvReac Type Severity Reaction Status Date / Time Iodinated Contrast Media Allergy Anaphylaxis Verified 08/24/23 10:34 iodine Allergy Anaphylaxis Verified 08/24/23 10:34 shellfish derived [Shellfish] Allergy Anaphylaxis Verified 08/24/23 10:34 Physical Exam Vitals: Vital Signs Temp Pulse Resp BP Pulse Ox FiO2 08/24/23 15:52 100 08/24/23 15:42 103 H 08/24/23 12:36 96 18 98 08/24/23 11:53 90 08/24/23 11:37 95 08/24/23 11:11 64 18 111/94 99 08/24/23 10:25 30 08/24/23 10:09 78 40 H 08/24/23 09:40 73 30 H 08/24/23 08:42 18 08/24/23 08:29 97.5 F L 90 16 119/76 96 Intake and Output 08/24/23 08/24/23 08/24/23 06:59 14:59 22:59 Other: Weight 65.771 kg Results CBC & Chem 7: 08/24/23 09:29 08/24/23 09:29 Labs: Abnormal Lab Results - Last 24 Hours (Table) 08/24/23 08/24/23 Range/Units 09:29 09:29 WBC 14.3 H (3.8-10.6) k/uL Plt Count 456 H (150-450) k/uL Neutrophils # 10.3 H (1.3-7.7) k/uL BUN 4 L (7-17) mg/dL Creatinine 0.44 L (0.52-1.04) mg/dL
[2023-08-24] MEDS: SODIUM CHLORIDE 0.9% 1,000 ML IV SCH (17:58)
[2023-08-24] MEDS: methylPREDNISolone SOD SUCCI 125 MG/2 ML VIAL IV SCH ×2 (17:58→22:09)
[2023-08-24] MEDS: guaiFENesin 600 MG TABLET.ER PO SCH (22:08)
[2023-08-24] MEDS: ACETAMINOPHEN TAB 325 MG TAB PO PRN (22:08)
[2023-08-25] MEDS: methylPREDNISolone SOD SUCCI 125 MG/2 ML VIAL IV SCH ×3 (04:04→15:24)
--- NOTE | 2023-08-25 04:04 | P.CNPUL ---
History of Present Illness Consult date: 08/25/23 Requesting physician: Nahed Santooy Reason for consult: asthma, pneumonia Chief complaint: Shortness of breath and productive cough History of present illness: I am seeing this patient in new consultation today 08/25/2023 on the general medical floor for combination of asthma exacerbation and right upper lobe community-acquired pneumonia. Patient is a 47-year-old female with past medical history significant for asthma, TIA/CVA, previous episodes of pneumonia, and is a chronic ongoing tobacco smoker. She smokes approximately 1/2ppd. She has no current PCP. States that she was diagnosed with asthma as a child and has a when necessary albuterol inhaler. Patient presented to the emergency room yesterday morning complaining of progressively worsening shortness of breath over the last 2 weeks. She said it started with URI like symptoms. Over the last 2 weeks, she states that she's had worsening shortness of breath especially on exertion, chest congestion, and a productive cough with green sputum. She denies any fevers, chills, hemoptysis. Denies any chest pain, heart palpit ations, lower extremity swelling, orthopnea. Patient is currently sitting up in bed, on room air, in no acute distress. When she presented to the emergency room, she was briefly placed on BiPAP. Chest x-ray on arrival showed hyperinflation with a right upper lobe infiltrate consistent with pneumonia. CBC on arrival showed some leukocytosis with a WBC count of 14.3, hemoglobin 13.2, hematocrit 39.3, platelets 456. BMP on arrival was unremarkable. No IV maintenance fluids are currently infusing. Troponin less than 0.012. Negative for influenza, RSV, COVID-19. Patient was started on empiric antibiotic some form of azithromycin and Rocephin. Currently afebrile. Appears nontoxic and hemodynamically stable. Review of Systems REVIEW OF SYSTEMS: CONSTITUTIONAL: Denies any recent significant weight loss or weight gain. EYES: Denies change in vision. EARS, NOSE, MOUTH, THROAT: Denies headaches, denies sore throat. CARDIOVASCULAR: Denies chest pain, palpitations or syncopal episodes. RESPIRATORY: see HPI GASTROINTESTINAL: Denies change in appetite, abdominal pain, nausea and vomiting, or diarrhea GENITOURINARY: Denies hematuria, denies infections. MUSKULOSKELETAL: Denies pain, denies swelling. INTEGUMENTARY: Denies rash, denies eczema. NEUROLOGICAL: Denies recent memory loss, no recent seizure activity. PSYCHIATRIC: Denies anxiety, denies depression. HEMATOLOGIC/LYMPHATIC: Denies anemia, denies enlarged lymph node Past Medical History Past Medical History: Asthma, CVA/TIA, Pneumonia Additional Past Medical History / Comment(s): TIA History of Any Multi-Drug Resistant Organisms: None Reported Past Surgical History: Orthopedic Surgery, Tonsillectomy, Tubal Ligation Additional Past Surgical History / Comment(s): Right leg surgery. Past Anesthesia/Blood Transfusion Reactions: No Reported Reaction Past Psychological History: No Psychological Hx Reported Smoking Status: Vaper Past Alcohol Use History: None Reported Past Drug Use History: None Reported - Past Family History Mother Family Medical History: Hypertension Medications and Allergies Home Medications Medication Instructions Recorded Confirmed Type Azithromycin [Zithromax Z Pack] 1 tab PO DIRECTED #6 tab 08/25/23 Rx Budesonide-Formot 160-4.5 Mcg 2 puff INHALATION RT-BID #1 each 08/25/23 Rx [Symbicort 160-4.5 Mcg Inhaler] Ipratropium-Albuterol Nebulize 3 ml INHALATION RT-QID #120 each 08/25/23 Rx [Duoneb 0.5 mg-3 mg/3 ml Soln] guaiFENesin [Mucinex] 600 mg PO Q12HR #30 tab 08/25/23 Rx predniSONE [Deltasone] 60 mg PO DAILY #15 tab 08/25/23 Rx Allergies Allergy/AdvReac Type Severity Reaction Status Date / Time Iodinated Contrast Media Allergy Anaphylaxis Verified 08/24/23 10:34 iodine Allergy Anaphylaxis Verified 08/24/23 10:34 shellfish derived [Shellfish] Allergy Anaphylaxis Verified 08/24/23 10:34 Physical Exam Vitals: Vital Signs Temp Pulse Pulse Resp BP BP Pulse Ox 08/25/23 00:12 90 08/25/23 00:06 95 95 08/24/23 21:20 97.7 F 110 H 15 132/85 95 08/24/23 20:04 90 08/24/23 19:48 88 08/24/23 19:30 107 H 20 115/77 97 08/24/23 15:52 100 08/24/23 15:42 103 H 08/24/23 12:36 96 18 98 08/24/23 11:53 90 08/24/23 11:37 95 08/24/23 11:11 64 18 111/94 99 08/24/23 10:25 08/24/23 10:09 78 40 H 08/24/23 09:40 73 30 H 08/24/23 08:42 18 08/24/23 08:29 97.5 F L 90 16 119/76 96 FiO2 08/25/23 00:12 08/25/23 00:06 21 08/24/23 21:20 08/24/23 20:04 08/24/23 19:48 08/24/23 19:30 08/24/23 15:52 08/24/23 15:42 08/24/23 12:36 08/24/23 11:53 08/24/23 11:37 08/24/23 11:11 08/24/23 10:25 30 08/24/23 10:09 08/24/23 09:40 08/24/23 08:42 08/24/23 08:29 Intake and Output 08/24/23 08/24/23 08/25/23 14:59 22:59 06:59 Other: Weight 65.771 kg GENERAL EXAM: Alert, 47-year-old white female, comfortable in no apparent distress. HEAD: Normocephalic and atraumatic EYES: Normal reaction of pupils, equal size. NOSE: Clear with pink turbinates. THROAT: No erythema or exudates. NECK: No masses, no JVD. CHEST: No chest wall deformity. LUNGS: Equal air entry with expiratory wheezes heard throughout. On room air. No conversational dyspnea or accessory muscle use.. CVS: S1 and S2 normal with no audible murmur, regular rhythm. No extra heart sounds ABDOMEN: No hepatosplenomegaly, active bowel sounds, no guarding or rigidity. SPINE: No scoliosis or deformity SKIN: No rashes CENTRAL NERVOUS SYSTEM: No focal deficits, tone is normal in all 4 extremities. EXTREMITIES: There is no peripheral edema, clubbing, or cyanosis. Peripheral pulses are intact. Results - Laboratory Findings CBC and BMP: 08/24/23 09:29 08/24/23 09:29 Abnormal lab findings: Abnormal Labs 08/24/23 08/24/23 09:29 09:29 WBC 14.3 H Plt Count 456 H Neutrophils # 10.3 H BUN 4 L Creatinine 0.44 L - Diagnostic Findings Chest x-ray: image reviewed Assessment and Plan Assessment: Right upper lobe community acquired pneumonia Leukocytosis, secondary to above Acute exacerbation of mild intermittent bronchial asthma Acute hypoxemic respiratory failure, improved, currently on room air Chronic ongoing nicotine dependence History of CVA/TIA Plan: Patient's medications, labs, chest x-ray reviewed Currently on room air Continue combination of bronchodilators and IV Solu-Medrol Add Symbicort Continue antibiotics for community-acquired pneumonia Negative for influenza, RSV, COVID-19 Patient was counseled on smoking cessation Nicotine replacement offered We will continue to follow I have personally seen and examined the patient, performed the documentation and the assessment and plan as written. Number of minutes spent on the visit:20 This is a joint evaluation that was done along with a nurse practitioner. The patient has been diagnosed having a right upper lobe pneumonia. Patient is clinically stable. Normal oxygenation. The patient can be discharged home on oral antibiotics and a prednisone burst taper to be followed up on outpatient basis. She obviously needs a follow-up chest x-ray today showed complete clearing of the right upper lobe pulmonary infiltrates. Smoking cessation counseling was done. The case was discussed with a medical team. Time with Patient: Greater than 30
[2023-08-25] MEDS: SODIUM CHLORIDE 0.9% 1,000 ML IV SCH (05:42)
[2023-08-25] MEDS ORDERED: SYMBICORT 160-4.5 MCG INHALER INHALATION SCH (08:00)
[2023-08-25] MEDS: guaiFENesin 600 MG TABLET.ER PO SCH (08:01)
[2023-08-25] MEDS: ACETAMINOPHEN TAB 325 MG TAB PO PRN (08:04)
[2023-08-25] MEDS ORDERED: NICOTINE 21MG/24HR PATCH TRANSDERM SCH (09:00)
[2023-08-25] MEDS ORDERED: AZITHROMYCIN 500 MG in SODIUM CHLORIDE 0.9% 250 ML IVPB SCH (09:00)
[2023-08-25 09:11] VITALS: TEMP 97.9
[2023-08-25] MEDS: IPRATROPIUM-ALBUTEROL 3 ML NEB INHALATION SCH ×2 (09:26→13:08)
--- NOTE | 2023-08-25 15:27 | P.DS ---
Providers Date of admission: 08/24/23 11:09 Expected date of discharge: 08/25/23 Attending physician: Nahed Santoyo MD Consults: 08/24/23 13:51 Consult Physician Routine Consulting Provider: Ashlee Flores Consult Reason/Comments: Pneumonia, COPD exacerbation Do you want consulting provider notified?: Yes Primary care physician: Stated None Hospital Course: Discharge Diagnosis: Acute exacerbation of mild intermittent bronchial asthma Community acquired pneumonia Acute hypoxic respiratory failure Chronic ongoing nicotine dependency Hospital Course: Patient is a 47-year-old female with asthma, nicotine dependency, and prior bouts of pneumonia who presented to the ER with complaints of 2 weeks of cough p roductive of green sputum. In the ER she underwent an extensive evaluation. On arrival she was significantly short of breath and BiPAP rescue therapy. Laboratory analysis was remarkable for white blood cell count of 14.3. Chest x- ray showed possible right-sided pneumonia. Influenza A/B/RSV/COVID-19 PCR is negative. Patient was admitted and pulmonary was consulted. She was continued on Rocephin, Zithromax, IV steroids, and bronchodilators. By the morning of 08/25 she had significant improvement was determined stable for discharge home. Follow-up: She will have prednisone 60 mg daily for the next 5 days, Zithromax 250 mg daily for the next 3 days, a refill of her DuoNeb teases her nebulizer 4 times a day scheduled for the next 5 days and then as needed, she was counseled on nicotine cessation, she was given a list of primary care physicians to establish care. She will follow with Dr. Flores on 09/21/23 Patient seen and examined at bedside. She was much improved. Her cough has resolved and is no longer productive. Her shortness of breath is resolved. She is feeling much better and feels comfortable going home. Vital signs reviewed and stable. General: nontoxic, no distress, appears at stated age Cardiovascular: S1S2 reg, no murmur, positive posterior tibial pulse bilateral, Lungs: CTA bilateral, no rhonchi, no rales , no accessory muscle use Abdominal: soft, nontender to palpation, no guarding, no appreciable organomegaly Ext: no gross muscle atrophy, no edema b/l lower extremities, no contractures Neuro: CN II-XI grossly intact, no focal neuro deficits Psych: Alert, oriented, appropriate affect A total of 35 minutes of time were spent preparing this complex discharge summary. Patient was discharged on 08/25/23. This dictation was prepared using [employer] voice recognition software. Though every attempt is made to correct errors during dictation some may still exist. Plan - Discharge Summary Discharge Rx Participant: No New Discharge Prescriptions: New Budesonide-Formot 160-4.5 Mcg [Symbicort 160-4.5 Mcg Inhaler] 2 puff INHALATION RT-BID #1 each Azithromycin [Zithromax Z Pack] 1 tab PO DIRECTED #6 tab predniSONE [Deltasone] 60 mg PO DAILY #15 tab Ipratropium-Albuterol Nebulize [Duoneb 0.5 mg-3 mg/3 ml Soln] 3 ml INHALATION RT-QID #120 each guaiFENesin [Mucinex] 600 mg PO Q12HR #30 tab Discharge Medication List Azithromycin [Zithromax Z Pack] 1 tab PO DIRECTED #6 tab 08/25/23 [Rx] Budesonide-Formot 160-4.5 Mcg [Symbicort 160-4.5 Mcg Inhaler] 2 puff INHALATION RT-BID #1 each 08/25/23 [Rx] Ipratropium-Albuterol Nebulize [Duoneb 0.5 mg-3 mg/3 ml Soln] 3 ml INHALATION R T-QID #120 each 08/25/23 [Rx] guaiFENesin [Mucinex] 600 mg PO Q12HR #30 tab 08/25/23 [Rx] predniSONE [Deltasone] 60 mg PO DAILY #15 tab 08/25/23 [Rx] Follow up Appointment(s)/Referral(s): None,Stated [Primary Care Provider] - 1-2 days Ashlee Flores MD [STAFF PHYSICIAN] - 09/21/23 10:30 am Activity/Diet/Wound Care/Special Instructions: Activity: As tolerated Diet: Regular Special Instructions: Ipratropium/albuterol via nebulizer 4 times daily for the next 5 days and then 4 times daily as needed for shortness of breath/wheezing Discharge/Stand Alone Forms: Personal Vascular Technologist, Area PCPs Discharge Disposition: HOME SELF-CARE
[2023-08-25 15:30] VITALS: BP 130/83; PULSE 98; RESP 18
== END 2023-08-25 16:20 | disposition home or self-care (01) ==
LOC: EC 08:27 → 3SCARD 11:09 → INTOOBSV 11:09 → 3SCARD 12:06 → 4SSUR 13:42 → 6NMEDSUR 20:09 → UNDODISIN 08-25 16:20
PROVIDERS: ADMIT Family Medicine; ATTEND Family Medicine
DX: J45.21 Mild intermittent asthma with (acute) exacerbation (principal); J96.01 Acute respiratory failure with hypoxia; A41.9 Sepsis, unspecified organism; J18.9 Pneumonia, unspecified organism; D72.829 Elevated white blood cell count, unspecified; F17.290 Nicotine dependence, other tobacco product, uncomplicated; Z20.822 Contact with and (suspected) exposure to COVID-19; Z86.73 Personal history of transient ischemic attack (TIA), and cerebral infarction without residual deficits; Z79.51 Long term (current) use of inhaled steroids; Z79.52 Long term (current) use of systemic steroids
CPT/HCPCS: 96376 ×3; 96366; 96361; 96365; 96367; 96375; 99285; 36415; 94660; 94640 ×4; 94760; 93005; 80053; 83605; 83735; 84484; 85025; 87040; 87636; 71046; G0378 ×2; S4990 ×2; J2930 ×2; J2405; J0456 ×2; J0696 ×2; 99291; 99406

== ENCOUNTER 2024-02-03 09:02 | Inpatient (IN) | payer BC, OTHER ==
[2024-02-03] MEDS ORDERED: LORazepam 2 MG/ML INJ IV PRN (09:25)
[2024-02-03] MEDS ORDERED: LORazepam 1 MG TAB PO PRN (09:25)
--- NOTE | 2024-02-03 09:51 | ED ---
Altered Mental Status HPI - General Chief Complaint: Neuro Symptoms/Deficit Stated Complaint: SOB Time Seen by Provider: 02/03/24 09:25 Source: patient, family, RN notes reviewed Mode of arrival: wheelchair Limitations: altered mental status - History of Present Illness Initial Comments: This is a 48-year-old female who presents to the emergency department for altered mental status. Patient's daughter at bedside and provides most of the history. States that she is a chronic alcohol user. Patient told her daughter that her last alcoholic beverage was 3 days ago. However, her daughter states that she saw on the doorcamera that she had ordered alcohol using [employer] yesterday. When she went to look for the alcohol, the box was empty, and she believes that she did likely drink it. She has been having significant tremors, confusion, and hallucinations for the last couple of days. When she developed the symptoms yesterday, she took her to [facility]. She had blood work, a CT scan of the brain, and chest x-ray, and other than mildly decreased kidney function, states that everything returned normal. Today, symptoms have gotten worse. She reportedly had a stroke in the past and her daughter is concerned about this being the cause of her symptoms. However, states that it may also be related to withdrawals. She has never gone through withdrawals this severe that her daughter has witnessed. She has no known seizure history. Patient has significant tremors on exam. She is however alert and oriented x 4 on initial discussion. MD Complaint: altered mental status - Related Data Home Medications Medication Instructions Recorded Confirmed ePHEDrine sulfate [Bronkaid Max] 25 mg PO Q4H PRN 02/03/24 02/03/24 Allergies Allergy/AdvReac Type Severity Reaction Status Date / Time Iodinated Contrast Media Allergy Anaphylaxis Verified 02/03/24 10:08 iodine Allergy Anaphylaxis Verified 02/03/24 10:08 shellfish derived [Shellfish] Allergy Anaphylaxis Verified 02/03/24 10:08 Review of Systems ROS Statement: Those systems with pertinent positive or pertinent negative responses have been documented in the HPI. ROS Other: All systems not noted in ROS Statement are negative. Past Medical History Past Medical History: Asthma, CVA/TIA, Pneumonia Additional Past Medical History / Comment(s): TIA, stage 1 kidney disease History of Any Multi-Drug Resistant Organisms: None Reported Past Surgical History: Orthopedic Surgery, Tonsillectomy, Tubal Ligation Additional Past Surgical History / Comment(s): Right leg surgery. Past Anesthesia/Blood Transfusion Reactions: No Reported Reaction Past Psychological History: No Psychological Hx Reported Smoking Status: Current every day smoker, Vaper Past Alcohol Use History: Abuse, Daily Past Drug Use History: None Reported - Past Family History Mother Family Medical History: Hypertension General Exam Limitations: altered mental status General appearance: alert Head exam: Present: atraumatic, normocephalic, normal inspection Eye exam: Present: normal appearance, PERRL, EOMI. Absent: scleral icterus, conjunctival injection, periorbital swelling Respiratory exam: Present: normal lung sounds bilaterally. Absent: respiratory distress, wheezes, rales, rhonchi, stridor Cardiovascular Exam: Present: regular rate, normal rhythm, normal heart sounds. Absent: systolic murmur, diastolic murmur, rubs, gallop, clicks Neurological exam: Present: alert, oriented X3, CN II-XII intact Psychiatric exam: Present: normal affect, normal mood Skin exam: Present: warm, dry, intact, normal color. Absent: rash Course Vital Signs 02/03/24 02/03/24 02/03/24 09:03 11:03 13:00 Temperature 98.7 F Pulse Rate 117 H 92 82 Respiratory 18 18 20 Rate Blood Pressure 136/91 145/82 112/82 O2 Sat by Pulse 96 99 96 Oximetry 02/03/24 02/03/24 15:04 16:17 Temperature Pulse Rate 73 71 Respiratory 16 18 Rate Blood Pressure 102/72 112/73 O2 Sat by Pulse 93 L 94 L Oximetry Medical Decision Making - Medical Decision Making This is a 48 year old female who presents to the emergency department for altered mental status. Was pt. sent in by a medical professional or institution? @ -No Did you speak to anyone other than the patient for history? @ -Her daughter provided the majority of the history. Did you review nursing and triage notes? @ -Yes, and I agree, it is accurate with regards to the patient's symptoms. Were old charts reviewed? @ -No Differential Diagnosis? @ -Differential Altered Mental Status: Hypoglycemia, DKA, hypercapnia, ETOH, overdose, CO poisoning, trauma, myxedema coma, HTN encephalopathy, infection, encephalitis, psychosis, intercranial hemorrhage, hepatic encephalopathy, meningitis, CVA, this is not meant to be an all-inclusive list EKG interpreted by me (3pts min.)? @ -EKG interpreted by me demonstrating the following: Sinus tachycardia. Ventricular rate 104 bpm, ME interval 123 ms, QRS duration 102 ms, QTc 345 ms. X-rays interpreted by me (1pt min.)? @ Not obtained CT interpreted by me (1pt min.)? @ -CT scan of the brain obtained. My interpretation identifies no evidence of acute intracranial hemorrhage. U/S interpreted by me (1pt. min.)? @ -Not obtained What testing was considered but not performed? (CT, X-rays, U/S, labs)? Why? @ -None What meds were considered but not given? Why? @ -None Did you discuss the management of the patient with other professionals? @ -Yes, Dr. Biswas, who accepts the patient for admission. Did you reconcile home meds? @ -No Was smoking cessation discussed for >3mins.? @ -I discussed smoking cessation for greater than 3 minutes. The risk of smoking were discussed with the patient including but not limited to risks of cancer, stroke, coronary artery disease and COPD. Also discussed with patient were multiple methods of quitting smoking. Lastly we discussed the financial cost of smoking. Was critical care preformed (if so, how long)? @ -No Were there social determinants of health that impacted care today? How? (Home lessness, low income, unemployed, alcoholism, drug addiction, transportation, low edu. Level, literacy, decrease access to med. care, long term, rehab)? @ -Alcoholism, causing what are likely withdrawal symptoms, leading to her visit today. Was there de-escalation of care discussed even if they declined? (Discuss DNR or withdrawal of care, Hospice)? @ -No What co-morbidities impacted this encounter? (DM, HTN, Smoking, COPD, CAD, Cancer, CVA, Hep., AIDS, mental health diagnosis, sleep apnea, morbid obesity)? @ -Smoking, alcohol abuse Was patient admitted / discharged? @ -Admitted. Lab work is fairly unremarkable. Urinalysis negative for signs of infection. Urine drug screen positive for tricyclic antidepressants. Alcohol level negative. CT scan of the brain obtained revealing no acute process. Patient was exhibiting fairly significant withdrawals on exam with tremors and active hallucinations. She was also very restless and kept trying to get up and pull out her IV. Patient subsequently admitted to medicine for alcohol withdrawals. CIWA protocol and seizure precautions were initiated. Undiagnosed new problem with uncertain prognosis? @ -None Drug Therapy requiring intensive monitoring for toxicity (Heparin, Nitro, Insulin, Cardizem)? @ -None Were any procedures done? @ -None Diagnosis/symptom? @ -Alcohol withdrawals Acute, or Chronic, or Acute on Chronic? @ -Acute Uncomplicated (without systemic symptoms) or Complicated (systemic symptoms)? @ -Complicated Side effects of treatment? @ -None Exacerbation, Progression, or Severe Exacerbation] @ -Not applicable Poses a threat to life or bodily function? @ -Yes This case was discussed in detail with the attending ED physician, Dr. Tony. Presentation, findings, and treatment plan discussed in detail as well. - Lab Data Result diagrams: 02/03/24 09:38 02/03/24 09:38 Lab Results 02/03/24 02/03/24 02/03/24 Range/Units 09:38 09:38 09:38 WBC 9.9 (3.8-10.6) k/uL RBC 3.83 (3.80-5.40) m/uL Hgb 12.7 (11.4-16.0) gm/dL Hct 36.7 (34.0-46.0) % MCV 95.8 (80.0-100.0) fL MCH 33.2 (25.0-35.0) pg MCHC 34.7 (31.0-37.0) g/dL RDW 13.7 (11.5-15.5) % Plt Count 305 (150-450) k/uL MPV 8.8 Neutrophils % 68 % Lymphocytes % 25 % Monocytes % 4 % Eosinophils % 2 % Basophils % 1 % Neutrophils # 6.7 (1.3-7.7) k/uL Lymphocytes # 2.5 (1.0-4.8) k/uL Monocytes # 0.4 (0-1.0) k/uL Eosinophils # 0.2 (0-0.7) k/uL Basophils # 0.1 (0-0.2) k/uL PT 11.1 (10.0-12.5) sec INR 1.0 (<1.2) APTT 27.8 (22.0-30.0) sec Sodium (137-145) mmol/L Potassium (3.5-5.1) mmol/L Chloride (98-107) mmol/L Carbon Dioxide (22-30) mmol/L Anion Gap mmol/L BUN (7-17) mg/dL Creatinine (0.52-1.04) mg/dL Est GFR (CKD-EPI)AfAm (>60 ml/min/1.73 sqM) Est GFR (CKD-EPI)NonAf (>60 ml/min/1.73 sqM) Glucose (74-99) mg/dL Calcium (8.4-10.2) mg/dL Total Bilirubin (0.2-1.3) mg/dL AST (14-36) U/L ALT (4-34) U/L Alkaline Phosphatase (38-126) U/L Troponin I (0.000-0.034) ng/mL Total Protein (6.3-8.2) g/dL Albumin (3.5-5.0) g/dL Urine Color Colorless Urine Appearance Clear (Clear) Urine pH 6.0 (5.0-8.0) Ur Specific Rothschild 1.006 (1.001-1.035) Urine Protein Negative (Negative) Urine Glucose (UA) Negative (Negative) Urine Ketones Negative (Negative) Urine Blood Negative (Negative) Urine Nitrite Negative (Negative) Urine Bilirubin Negative (Negative) Urine Urobilinogen <2.0 (<2.0) mg/dL Ur Leukocyte Esterase Negative (Negative) Urine Opiates Screen Not Detected (NotDetected) Ur Oxycodone Screen Not Detected (NotDetected) Urine Methadone Screen Not Detected (NotDetected) Ur Barbiturates Screen Not Detected (NotDetected) U Tricyclic Antidepress Detected H (NotDetected) Ur Phencyclidine Scrn Not Detected (NotDetected) Ur Amphetamines Screen Not Detected (NotDetected) U Methamphetamines Scrn Not Detected (NotDetected) U Benzodiazepines Scrn Not Detected (NotDetected) Urine Cocaine Screen Not Detected (NotDetected) U Marijuana (THC) Screen Not Detected (NotDetected) Serum Alcohol mg/dL 02/03/24 02/03/24 Range/Units 09:38 09:38 WBC (3.8-10.6) k/uL RBC (3.80-5.40) m/uL Hgb (11.4-16.0) gm/dL Hct (34.0-46.0) % MCV (80.0-100.0) fL MCH (25.0-35.0) pg MCHC (31.0-37.0) g/dL RDW (11.5-15.5) % Plt Count (150-450) k/uL MPV Neutrophils % % Lymphocytes % % Monocytes % % Eosinophils % % Basophils % % Neutrophils # (1.3-7.7) k/uL Lymphocytes # (1.0-4.8) k/uL Monocytes # (0-1.0) k/uL Eosinophils # (0-0.7) k/uL Basophils # (0-0.2) k/uL PT (10.0-12.5) sec INR (<1.2) APTT (22.0-30.0) sec Sodium 140 (137-145) mmol/L Potassium 3.6 (3.5-5.1) mmol/L Chloride 109 H (98-107) mmol/L Carbon Dioxide 20 L (22-30) mmol/L Anion Gap 11 mmol/L BUN 7 (7-17) mg/dL Creatinine 0.59 (0.52-1.04) mg/dL Est GFR (CKD-EPI)AfAm >90 (>60 ml/min/1.73 sqM) Est GFR (CKD-EPI)NonAf >90 (>60 ml/min/1.73 sqM) Glucose 82 (74-99) mg/dL Calcium 10.3 H (8.4-10.2) mg/dL Total Bilirubin 1.2 (0.2-1.3) mg/dL AST 36 (14-36) U/L ALT 20 (4-34) U/L Alkaline Phosphatase 96 (38-126) U/L Troponin I <0.012 (0.000-0.034) ng/mL Total Protein 7.2 (6.3-8.2) g/dL Albumin 4.4 (3.5-5.0) g/dL Urine Color Urine Appearance (Clear) Urine pH (5.0-8.0) Ur Specific Rothschild (1.001-1.035) Urine Protein (Negative) Urine Glucose (UA) (Negative) Urine Ketones (Negative) Urine Blood (Negative) Urine Nitrite (Negative) Urine Bilirubin (Negative) Urine Urobilinogen (<2.0) mg/dL Ur Leukocyte Esterase (Negative) Urine Opiates Screen (NotDetected) Ur Oxycodone Screen (NotDetected) Urine Methadone Screen (NotDetected) Ur Barbiturates Screen (NotDetected) U Tricyclic Antidepress (NotDetected) Ur Phencyclidine Scrn (NotDetected) Ur Amphetamines Screen (NotDetected) U Methamphetamines Scrn (NotDetected) U Benzodiazepines Scrn (NotDetected) Urine Cocaine Screen (NotDetected) U Marijuana (THC) Screen (NotDetected) Serum Alcohol <10 mg/dL - Radiology Data Radiology results: report reviewed, image reviewed Disposition Clinical Impression: Nicotine dependence, Alcohol withdrawal delirium Disposition: ADMITTED IP TO THIS [facility] Time of Disposition: 12:12
--- NOTE | 2024-02-03 09:57 | CT ---
EXAMINATION TYPE: CT brain wo con CT DLP: 1138.4 mGycm, Automated exposure control for dose reduction was used. DATE OF EXAM: 02/03/2024 9:52 AM COMPARISON: 10/01/2022.. CLINICAL INDICATION:Female, 48 years old with history of Altered mental status, AMS, tremors, halluci nations, hx TIA TECHNIQUE: Brain: Axial CT images of the brain were obtained with coronal and sagittal reformats created and rev iewed. Contrast used: None. Oral contrast used: None. FINDINGS: Brain: Extra-axial spaces: No abnormal extra-axial fluid collections. Ventricular system: Within normal limits Cerebral parenchyma: No acute intraparenchymal hemorrhage or mass effect. The odom-white junction is well differentiated. Cerebellum: Unremarkable. Mass effect: No evidence of midline shift. Intracranial vasculature: unremarkable Soft tissues: Normal. Calvarium/osseous structures: No depressed skull fracture. Paranasal sinuses and mastoid air cells: Mild scattered paranasal sinus disease. Visualized orbits: Orbital contents are intact. IMPRESSION: No acute intracranial process.
[2024-02-03] MEDS: THIAMINE 100 MG/ML 2 ML VIAL IM STA (09:58)
[2024-02-03] MEDS: LORazepam 2 MG/ML INJ IV PRN ×3 (10:02→13:02)
[2024-02-03] MEDS: SODIUM CHLORIDE 0.9% 1,000 ML IV ONE (10:04)
[2024-02-03 10:07] LABS: Basophils # (A) 0.1 k/uL (0-0.2); Basophils % (A) 1 %; Eosinophils # (A) 0.2 k/uL (0-0.7); Eosinophils % (A) 2 %; HCT 36.7 % (34.0-46.0); HGB 12.7 gm/dL (11.4-16.0); Lymphocytes # (A) 2.5 k/uL (1.0-4.8); Lymphocytes % (A) 25 %; MCH 33.2 pg (25.0-35.0); MCHC 34.7 g/dL (31.0-37.0); MCV 95.8 fL (80.0-100.0); Mean Platelet Volume 8.8; Monocytes # (A) 0.4 k/uL (0-1.0); Monocytes % (A) 4 %; Neutrophils # (A) 6.7 k/uL (1.3-7.7); Neutrophils % (A) 68 %; Platelet Count 305 k/uL (150-450); RBC 3.83 m/uL (3.80-5.40); RDW 13.7 % (11.5-15.5); WBC 9.9 k/uL (3.8-10.6)
[2024-02-03 10:14] LABS: Partial Thromboplastin Time 27.8 sec (22.0-30.0); Prothrombin Time 11.1 sec (10.0-12.5)
[2024-02-03 10:20] LABS: Potassium 3.6 mmol/L (3.5-5.1)
[2024-02-03 10:21] LABS: ALT 20 U/L (4-34); AST 36 U/L (14-36); African American GFR (CKD) >90 (>60 ml/min/1.73 sqM); Albumin 4.4 g/dL (3.5-5.0); Alcohol <10 mg/dL; Alkaline Phosphatase 96 U/L (38-126); Anion Gap 11 mmol/L; Blood Urea Nitrogen 7 mg/dL (7-17); Calcium 10.3 mg/dL (8.4-10.2); Carbon Dioxide 20 mmol/L (22-30); Chloride 109 mmol/L (98-107); Glucose 82 mg/dL (74-99); Non-African American GFR(CKD) >90 (>60 ml/min/1.73 sqM); Sodium 140 mmol/L (137-145); Total Bilirubin 1.2 mg/dL (0.2-1.3); Total Protein 7.2 g/dL (6.3-8.2)
[2024-02-03] MEDS: LORazepam 2 MG/ML INJ IV STA (11:45)
[2024-02-03] MEDS ORDERED: ACETAMINOPHEN TAB 325 MG TAB PO PRN (12:11)
[2024-02-03] MEDS ORDERED: NALOXONE 0.4 MG/ML 1 ML VIAL IV PRN (12:11)
[2024-02-03] MEDS ORDERED: KETOROLAC 15 MG/ML 1 ML VIAL IVP PRN (12:11)
[2024-02-03 13:10] LABS: Appearance,Urine Clear (Clear); Bilirubin,Urine Negative (Negative); Blood,Urine Negative (Negative); Color,Urine Colorless; Glucose,Urine (UA) Negative (Negative); Ketones,Urine Negative (Negative); Leukocyte Esterase,Urine Negative (Negative); Nitrite,Urine Negative (Negative); Protein,Urine Negative (Negative); Specific Gravity,Urine 1.006 (1.001-1.035); Urobilinogen,Urine <2.0 mg/dL (<2.0)
[2024-02-03 13:22] LABS: Amphetamine Screen,Urine Not Detected (NotDetected); Barbiturate Screen,Urine Not Detected (NotDetected); Benzodiazepines Screen,Urine Not Detected (NotDetected); Cocaine Screen,Urine Not Detected (NotDetected); Methadone Screen, Urine Not Detected (NotDetected); Opiate Screen,Urine Not Detected (NotDetected); Oxycodone Screen, Urine Not Detected (NotDetected); Phencyclidine Screen,Urine Not Detected (NotDetected); Tricyclic Antidepressant,Urine Detected (NotDetected); Urn Cannabinoid Scrn Not Detected (NotDetected)
--- NOTE | 2024-02-03 23:32 | P.HPIM ---
History of Present Illness H&P Date: 02/03/24 Chief Complaint: Altered mental status Patient is a 48-year-old female with a past medical history of asthma, history of TIA, currently everyday smoker and daily alcohol use was brought to the hospital due to altered mental status. According to her daughter patient had last drink of alcohol about 3 days ago however she had ordered alcohol using[employer] yesterday and the box is empty when she looked at it today. Patient has been having hallucinations and tremors for the last couple of days. Patient was taken to [facility] where she had workup i ncluding CT head, chest x-ray and laboratory tests were done and was told she had mild kidney injury. After returning home she is still having worsening symptoms. She has been having more shaking hallucinations. Denies any weakness or seizures. No fever no chills. No nausea vomiting or diarrhea. Patient has been afebrile and on room air on admission. Was tachycardic. CT head showed no acute process. Chronic small vessel ischemic changes. EKG showed sinus tachycardia Laboratory data showed sodium 140 potassium 3.6 chloride 109 bicarb is 20 BUN 7 creatinine 0.59 and calcium 10.3 Bilirubin 1.2 AST 36 ALT 20 and alk phos 96 and troponin 0.012 and albumin 4.4 Urinalysis is negative for infection and UDS is positive for tricyclic antidepressants. Review of Systems ROS unobtainable: due to mental status Past Medical History Past Medical History: Asthma, CVA/TIA, Pneumonia Additional Past Medical History / Comment(s): TIA, stage 1 kidney disease History of Any Multi-Drug Resistant Organisms: None Reported Past Surgical History: Orthopedic Surgery, Tonsillectomy, Tubal Ligation Additional Past Surgical History / Comment(s): Right leg surgery. Past Anesthesia/Blood Transfusion Reactions: No Reported Reaction Past Psychological History: No Psychological Hx Reported Smoking Status: Current every day smoker, Vaper Past Alcohol Use History: Abuse, Daily Past Drug Use History: None Reported - Past Family History Mother Family Medical History: Hypertension Medications and Allergies Home Medications Medication Instructions Recorded Confirmed Type ePHEDrine sulfate [Bronkaid Max] 25 mg PO Q4H PRN 02/03/24 02/03/24 History Allergies Allergy/AdvReac Type Severity Reaction Status Date / Time Iodinated Contrast Media Allergy Anaphylaxis Verified 02/03/24 10:08 iodine Allergy Anaphylaxis Verified 02/03/24 10:08 shellfish derived [Shellfish] Allergy Anaphylaxis Verified 02/03/24 10:08 Physical Exam Vitals: Vital Signs Temp Pulse Resp BP Pulse Ox 02/03/24 13:00 82 20 112/82 96 02/03/24 11:03 92 18 145/82 99 02/03/24 09:03 98.7 F 117 H 18 136/91 96 Intake and Output 02/02/24 02/03/24 02/03/24 22:59 06:59 14:59 Other: Weight 61.235 kg PHYSICAL EXAMINATION: Patient is lying in the bed,, no acute distress, patient is lethargic and drowsy.. HEENT: Normocephalic. Neck is supple. Pupils reactive. Nostrils clear. Oral cavity is moist. Neck reveals no JVD, carotid bruits, or thyromegaly. CHEST EXAMINATION: Trachea is central. Symmetrical expansion. Bibasilar diminished sounds. Otherwise lung bennett clear to auscultation and percussion. Nonlabored breathing. CARDIAC: Normal S1, S2 with no gallops. No murmurs ABDOMEN: Soft. Bowel sounds normal. No organomegaly. No abdominal bruits. Extremities: reveal no edema. No clubbing or cyanosis Neurologically patient is lethargic and drowsy but able to open her eyes with verbal stimuli. No gross focal deficits noted Skin: No rash or skin lesions. Psychiatric: Coperative. Could not be sensitive completely Musculoskeletal: No joint swelling or deformity. Results CBC & Chem 7: 02/03/24 09:38 02/03/24 09:38 Labs: Abnormal Lab Results - Last 24 Hours (Table) 02/03/24 02/03/24 Range/Units 09:38 09:38 Chloride 109 H (98-107) mmol/L Carbon Dioxide 20 L (22-30) mmol/L Calcium 10.3 H (8.4-10.2) mg/dL U Tricyclic Antidepress Detected H (NotDetected) Thrombosis Risk Factor Assmnt - DVT/VTE Prophylaxis DVT/VTE Prophylaxis: Pharmacologic Prophylaxis ordered Assessment and Plan Assessment: Acute alcohol withdrawal syndrome/delirium tremens. Patient is with hallucinations, tremors and confusion. Alcohol use disorder History of TIA about a year ago History of asthma Currently everyday smoker/vaping DVT prophylaxis heparin subcu GI prophylaxis PPI Plan: Patient will be continued on IV hydration with normal saline. Continue with alcohol withdrawal protocol and replace thiamine and multivitamins. GI and DVT prophylaxis. Continue seizure precautions and fall precautions and follow-up closely. Time with Patient: Greater than 30
[2024-02-04] MEDS: HEPARIN SODIUM,PORCINE 5,000 UNIT/ML 1 ML VIAL SQ SCH (02:10)
[2024-02-04] MEDS: SODIUM CHLORIDE 0.9% 1,000 ML IV SCH (02:11)
[2024-02-04] MEDS: THIAMINE 100 MG TAB PO SCH (08:10)
[2024-02-04] MEDS: PANTOPRAZOLE 40 MG/10 ML VIAL IV SCH (08:10)
[2024-02-04 11:15] LABS: ALT 16 U/L (4-34); AST 28 U/L (14-36); African American GFR (CKD) >90 (>60 ml/min/1.73 sqM); Albumin 3.3 g/dL (3.5-5.0); Alkaline Phosphatase 78 U/L (38-126); Anion Gap 6 mmol/L; Blood Urea Nitrogen 16 mg/dL (7-17); Calcium 9.2 mg/dL (8.4-10.2); Carbon Dioxide 23 mmol/L (22-30); Chloride 110 mmol/L (98-107); Glucose 122 mg/dL (74-99); Non-African American GFR(CKD) >90 (>60 ml/min/1.73 sqM); Potassium 3.5 mmol/L (3.5-5.1); Sodium 139 mmol/L (137-145); Total Bilirubin 0.7 mg/dL (0.2-1.3); Total Protein 5.7 g/dL (6.3-8.2)
[2024-02-04 13:45] VITALS: BMI 14.6
--- NOTE | 2024-02-04 17:05 | P.PN ---
Subjective Progress Note Date: 02/04/24 48-year-old female with a past medical history of asthma, history of TIA, currently everyday smoker and daily alcohol use was brought to the hospital due to altered mental status. According to her daughter patient had last drink of alcohol about 3 days ago however she had ordered alcohol using[employer] delivery yesterday and the box is empty when she looked at it today. Patient has been having hallucinations and tremors for the last couple of days. Patient was taken to [facility] where she had workup including CT head, chest x-ray and laboratory tests were done and was told she had mild kidney injury. After returning home she is still having worsening symptoms. She has been having more shaking hallucinations. Denies any weakness or seizures. No fever no chills. No nausea vomiting or diarrhea. Patient has been afebrile and on room air on admission. Was tachycardic. CT head showed no acute process. Chronic small vessel ischemic changes. EKG showed sinus tachycardia Laboratory data showed sodium 140 potassium 3.6 chloride 109 bicarb is 20 BUN 7 creatinine 0.59 and calcium 10.3 Bilirubin 1.2 AST 36 ALT 20 and alk phos 96 and troponin 0.012 and albumin 4.4 Urinalysis is negative for infection and UDS is positive for tricyclic antidepressants. Objective - Vital Signs Vital signs: Vital Signs Temp 97.6 F 02/04/24 08:00 Pulse 68 02/04/24 08:00 Resp 16 02/04/24 08:00 BP 122/78 02/04/24 08:00 Pulse Ox 98 02/04/24 08:00 FiO2 Intake & Output 02/03/24 02/04/24 02/04/24 18:59 06:59 18:59 Intake Total 0 Output Total 200 200 Balance 0 -200 -200 Weight 61.235 kg 33 kg Intake: Oral 0 Output: Urine 200 200 Other: Voiding Method Indwelling Catheter Indwelling Catheter Indwelling Catheter # Voids 0 0 - Exam Patient is lying in the bed,, no acute distress, patient is lethargic and molly wsy.. HEENT: Normocephalic. Neck is supple. Pupils reactive. Nostrils clear. Oral cavity is moist. Neck reveals no JVD, carotid bruits, or thyromegaly. CHEST EXAMINATION: Trachea is central. Symmetrical expansion. Bibasilar diminished sounds. Otherwise lung bennett clear to auscultation and percussion. Nonlabored breathing. CARDIAC: Normal S1, S2 with no gallops. No murmurs ABDOMEN: Soft. Bowel sounds normal. No organomegaly. No abdominal bruits. Extremities: reveal no edema. No clubbing or cyanosis Neurologically patient is lethargic and drowsy but able to open her eyes with verbal stimuli. No gross focal deficits noted Skin: No rash or skin lesions. Psychiatric: Coperative. Could not be sensitive completely Musculoskeletal: No joint swelling or deformity. - Labs CBC & Chem 7: 02/03/24 09:38 02/04/24 10:26 Labs: Abnormal Lab Results - Last 24 Hours (Table) 02/03/24 02/04/24 Range/Units 09:38 10:26 Chloride 110 H (98-107) mmol/L Glucose 122 H (74-99) mg/dL Total Protein 5.7 L (6.3-8.2) g/dL Albumin 3.3 L (3.5-5.0) g/dL U Tricyclic Antidepress Detected H (NotDetected) Assessment and Plan Assessment: Acute alcohol withdrawal syndrome/delirium tremens. Patient is with hallucinations, tremors and confusion. Alcohol use disorder History of TIA about a year ago History of asthma Currently everyday smoker/vaping DVT prophylaxis heparin subcu GI prophylaxis PPI Plan: Patient will be continued on IV hydration with normal saline. Continue with alcohol withdrawal protocol and replace thiamine and multivitamins. GI and DVT prophylaxis. Continue seizure precautions and fall precautions and follow-up closely.
[2024-02-04] MEDS: NICOTINE 21MG/24HR PATCH TRANSDERM SCH (20:47)
[2024-02-05 09:16] LABS: Basophils % (A) 0 %; Eosinophils # (A) 0.3 k/uL (0-0.7); Eosinophils % (A) 5 %; HCT 31.8 % (34.0-46.0); HGB 10.8 gm/dL (11.4-16.0); Lymphocytes # (A) 2.4 k/uL (1.0-4.8); Lymphocytes % (A) 35 %; MCH 33.4 pg (25.0-35.0); MCHC 34.1 g/dL (31.0-37.0); MCV 98.1 fL (80.0-100.0); Mean Platelet Volume 9.5; Monocytes # (A) 0.2 k/uL (0-1.0); Monocytes % (A) 3 %; Neutrophils # (A) 3.6 k/uL (1.3-7.7); Neutrophils % (A) 54 %; Platelet Count 214 k/uL (150-450); RBC 3.24 m/uL (3.80-5.40); RDW 13.9 % (11.5-15.5); WBC 6.7 k/uL (3.8-10.6)
[2024-02-05 09:43] LABS: African American GFR (CKD) >90 (>60 ml/min/1.73 sqM); Anion Gap 7 mmol/L; Blood Urea Nitrogen 14 mg/dL (7-17); Calcium 8.9 mg/dL (8.4-10.2); Carbon Dioxide 21 mmol/L (22-30); Chloride 110 mmol/L (98-107); Glucose 59 mg/dL (74-99); Non-African American GFR(CKD) >90 (>60 ml/min/1.73 sqM); Potassium 3.9 mmol/L (3.5-5.1); Sodium 138 mmol/L (137-145)
[2024-02-05 11:01] LABS: Reticulocyte % 1.4 % (0.5-2.0)
--- NOTE | 2024-02-05 12:58 | P.PN ---
Subjective Progress Note Date: 02/05/24 48-year-old female with a past medical history of asthma, history of TIA, currently everyday smoker and daily alcohol use was brought to the hospital due to altered mental status. According to her daughter patient had last drink of alcohol about 3 days ago however she had ordered alcohol [employer] yesterday and the box is empty when she looked at it today. Patient has been having hallucinations and tremors for the last couple of days. Patient was taken to [facility] where she had workup including CT head, chest x-ray and laboratory tests were done and was told she had mild kidney injury. After returning home she is still having worsening symptoms. She has been having more shaking hallucinations. Denies any weakness or seizures. No fever no chills. No nausea vomiting or diarrhea. Patient has been afebrile and on room air on admission. Was tachycardic. CT head showed no acute process. Chronic small vessel ischemic changes. EKG showed sinus tachycardia Laboratory data showed sodium 140 potassium 3.6 chloride 109 bicarb is 20 BUN 7 creatinine 0.59 and calcium 10.3 Bilirubin 1.2 AST 36 ALT 20 and alk phos 96 and troponin 0.012 and albumin 4.4 Urinalysis is negative for infection and UDS is positive for tricyclic antidepressants. 02/05/2024 Patient is seen and evaluated with family at bedside; awake and alert today; reports needing less Ativan Vital signs reviewed and remained stable Blood work completed today reveals hemoglobin of 10.8 down from 12.7 yesterday; patient denies any hemoptysis, hematemesis or melena We will plan to monitor H&H closely, start patient on IV Protonix; stool occult blood all stool samples; iron studies are ordered --Patient remains on IV Ativan per [facility] protocol Objective - Vital Signs Vital signs: Vital Signs Temp 97.7 F 02/05/24 07:29 Pulse 73 02/05/24 07:29 Resp 16 02/05/24 07:29 BP 150/81 02/05/24 07:29 Pulse Ox 99 02/05/24 07:29 FiO2 Intake & Output 02/04/24 02/05/24 02/05/24 18:59 06:59 18:59 Intake Total 600 Output Total 400 600 Balance 200 -600 Weight 33 kg Intake: Intake, IV Titration 600 Amount Sodium Chloride 0.9% 1, 600 000 ml @ 75 mls/hr IV . [id number] [facility] Rx#:[id number] Output: Urine 400 600 Other: Voiding Method Indwelling Catheter Indwelling Catheter Indwelling Catheter # Voids 0 0 - Exam Patient is lying in the bed,, no acute distress, patient is lethargic and drowsy.. HEENT: Normocephalic. Neck is supple. Pupils reactive. Nostrils clear. Oral cavity is moist. Neck reveals no JVD, carotid bruits, or thyromegaly. CHEST EXAMINATION: Trachea is central. Symmetrical expansion. Bibasilar diminished sounds. Otherwise lung bennett clear to auscultation and percussion. Nonlabored breathing. CARDIAC: Normal S1, S2 with no gallops. No murmurs ABDOMEN: Soft. Bowel sounds normal. No organomegaly. No abdominal bruits. Extremities: reveal no edema. No clubbing or cyanosis Neurologically patient is lethargic and drowsy but able to open her eyes with verbal stimuli. No gross focal deficits noted Skin: No rash or skin lesions. Psychiatric: Coperative. Could not be sensitive completely Musculoskeletal: No joint swelling or deformity. - Labs CBC & Chem 7: 02/05/24 08:04 02/05/24 08:04 Labs: Abnormal Lab Results - Last 24 Hours (Table) 02/04/24 02/05/24 Range/Units 10:26 08:04 RBC 3.24 L (3.80-5.40) m/uL Hgb 10.8 L (11.4-16.0) gm/dL Hct 31.8 L (34.0-46.0) % Chloride 110 H (98-107) mmol/L Glucose 122 H (74-99) mg/dL Total Protein 5.7 L (6.3-8.2) g/dL Albumin 3.3 L (3.5-5.0) g/dL Assessment and Plan Assessment: Acute alcohol withdrawal syndrome/delirium tremens. Patient is with hallucinations, tremors and confusion. Alcohol use disorder History of TIA about a year ago History of asthma Currently everyday smoker/vaping DVT prophylaxis heparin subcu GI prophylaxis PPI Plan: Patient will be continued on IV hydration with normal saline. Continue with alcohol withdrawal protocol and replace thiamine and multivitamins. GI and DVT prophylaxis. Continue seizure precautions and fall precautions and follow-up closely.
[2024-02-05] MEDS: ONDANSETRON 4 MG/2 ML VIAL IVP PRN (13:03)
[2024-02-05 15:38] LABS: HCT 36.4 % (34.0-46.0); HGB 11.9 gm/dL (11.4-16.0); MCH 32.6 pg (25.0-35.0); MCHC 32.6 g/dL (31.0-37.0); MCV 99.9 fL (80.0-100.0); Mean Platelet Volume 9.9; Platelet Count 224 k/uL (150-450); RBC 3.65 m/uL (3.80-5.40); RDW 13.6 % (11.5-15.5)
[2024-02-06 08:59] LABS: African American GFR (CKD) >90 (>60 ml/min/1.73 sqM); Anion Gap 3 mmol/L; Blood Urea Nitrogen 6 mg/dL (7-17); Calcium 8.7 mg/dL (8.4-10.2); Carbon Dioxide 24 mmol/L (22-30); Chloride 112 mmol/L (98-107); Glucose 85 mg/dL (74-99); Non-African American GFR(CKD) >90 (>60 ml/min/1.73 sqM); Potassium 3.8 mmol/L (3.5-5.1); Sodium 139 mmol/L (137-145)
[2024-02-06 09:16] LABS: % Iron Saturation 21.74 (12.00-45.00); Iron 55 UG/DL (50-170); Total Iron Binding Capacity 253 UG/DL (228-460)
[2024-02-06 10:37] VITALS: BP 119/69; PULSE 76; RESP 18; TEMP 97.7
== END 2024-02-06 13:09 | disposition home or self-care (01) | DRG 897 ==
LOC: EC 09:02 → 5NMEDONC 11:44 → 3SCARD 13:48
PROVIDERS: ADMIT Internal Medicine; ATTEND Internal Medicine
PROC: HZ2ZZZZ Detoxification Services for Substance Abuse Treatment (ICD-10-PCS; principal; 2024-02-03)
DX: F10.231 Alcohol dependence with withdrawal delirium (principal); F17.210 Nicotine dependence, cigarettes, uncomplicated; Z86.73 Personal history of transient ischemic attack (TIA), and cerebral infarction without residual deficits; N18.1 Chronic kidney disease, stage 1; F17.290 Nicotine dependence, other tobacco product, uncomplicated; I12.9 Hypertensive chronic kidney disease with stage 1 through stage 4 chronic kidney disease, or unspecified chronic kidney disease; R00.0 Tachycardia, unspecified; J44.89 Other specified chronic obstructive pulmonary disease; Z82.49 Family history of ischemic heart disease and other diseases of the circulatory system; Z91.041 Radiographic dye allergy status; Z91.013 Allergy to seafood; Z98.51 Tubal ligation status
CPT/HCPCS: 36415; 51702; 70450; 80048; 80053; 80306; 80320; 81003; 82140; 82607; 82728; 83540; 83550; 84443; 84484; 85025; 85027; 85045; 85610; 85730; 93005; 96361; 96372; 96374; 96375; 96376; 99285

== ENCOUNTER 2024-03-12 13:12 | Emergency (ER) | payer BC ==
--- NOTE | 2024-03-12 13:33 | ED ---
SOB HPI - General Chief Complaint: Shortness of Breath Stated Complaint: SOB Time Seen by Provider: 03/12/24 13:19 Source: patient, RN notes reviewed, old records reviewed Mode of arrival: EMS Limitations: no limitations - History of Present Illness Initial Comments: 48-year-old female with history of asthma history of TIA stage I kidney disease who presents by EMS with complaints of a cough for at least the past several days with onset of shortness of breath this morning that seem to be refractory to her home inhalers. No overt fevers chills or sweats she has had a cough with some yellow-tinged phlegm. No overt chest pain she did get an updraft and route with some relief but she started to feel short of breath again. No other current complaints MD Complaint: shortness of breath, cough - Related Data Home Medications Medication Instructions Recorded Confirmed ePHEDrine sulfate [Bronkaid Max] 25 mg PO Q4H PRN 02/03/24 02/03/24 Previous Rx's Medication Instructions Recorded Thiamine [Vitamin B-1] 100 mg PO DAILY tab 02/06/24 Amoxicillin 500 mg PO Q8H #21 capsule 03/12/24 Ipratropium/Albuter 20-100Mcg 1 puff INHALATION Q6HR PRN #4 gm 03/12/24 [Combivent Respimat 20-100Mcg Inhaler] predniSONE [Deltasone] 20 mg PO BID #10 tab 03/12/24 Allergies Allergy/AdvReac Type Severity Reaction Status Date / Time Iodinated Contrast Media Allergy Anaphylaxis Verified 03/12/24 13:21 iodine Allergy Anaphylaxis Verified 03/12/24 13:21 shellfish derived [Shellfish] Allergy Anaphylaxis Verified 03/12/24 13:21 Review of Systems ROS Statement: Those systems with pertinent positive or pertinent negative responses have been documented in the HPI. ROS Other: All systems not noted in ROS Statement are negative. Past Medical History Past Medical History: Asthma, CVA/TIA, Pneumonia Additional Past Medical History / Comment(s): TIA, stage 1 kidney disease History of Any Multi-Drug Resistant Organisms: None Reported Past Surgical History: Orthopedic Surgery, Tonsillectomy, Tubal Ligation Additional Past Surgical History / Comment(s): Right leg surgery. Past Anesthesia/Blood Transfusion Reactions: No Reported Reaction Past Psychological History: No Psychological Hx Reported Smoking Status: Current every day smoker, Vaper Past Alcohol Use History: Abuse, Daily Past Drug Use History: None Reported - Past Family History Mother Family Medical History: Hypertension General Exam - General Exam Comments Initial Comments: This is a well-developed well-nourished awake alert oriented x 4 female Limitations: no limitations General appearance: alert, anxious Head exam: Present: atraumatic, normocephalic, normal inspection Eye exam: Present: normal appearance, PERRL, EOMI. Absent: scleral icterus, conjunctival injection, periorbital swelling ENT exam: Present: mucous membranes dry, other (Mild posterior pharyngeal hyperemia no exudates) Neck exam: Present: normal inspection, full ROM, other (No stridor JVD or bruits). Absent: tenderness, meningismus, lymphadenopathy Respiratory exam: Present: wheezes, decreased breath sounds. Absent: respiratory distress, rales, rhonchi, stridor Cardiovascular Exam: Present: regular rate, normal rhythm, normal heart sounds. Absent: systolic murmur, diastolic murmur, rubs, gallop, clicks GI/Abdominal exam: Present: soft, normal bowel sounds. Absent: distended, tende rness, guarding, rebound, rigid Extremities exam: Present: normal inspection, full ROM, normal capillary refill. Absent: tenderness, pedal edema, joint swelling, calf tenderness Back exam: Present: normal inspection Neurological exam: Present: alert, oriented X3, CN II-XII intact Psychiatric exam: Present: normal affect, normal mood Skin exam: Present: warm, dry, intact, normal color. Absent: rash Course Vital Signs 03/12/24 03/12/24 03/12/24 13:17 14:45 15:58 Temperature 97.8 F Pulse Rate 75 90 93 Respiratory 20 20 Rate Blood Pressure 135/60 O2 Sat by Pulse 95 98 Oximetry 03/12/24 16:00 Temperature Pulse Rate 94 Respiratory 20 Rate Blood Pressure 130/70 O2 Sat by Pulse 97 Oximetry Medical Decision Making - Medical Decision Making I did reevaluate the patient on several occasion after the last round of medic ation was given the patient feels much improved she does have lactic acid elevation of a noninfectious etiology likely secondary to volume depletion she feels much improved and desires to go home. She will be discharged home with oral steroids a change in her inhaler and a short course of antibiotics if she does demonstrate evidence of bronchitis. Was pt. sent in by a medical professional or institution (AVILA Mendez, PHOTO MANAGER, urgent care, hospital, or care home...) When possible be specific @ -No Did you speak to anyone other than the patient for history (EMS, parent, family, police, friend...)? What history was obtained from this source @ -EMS personnel Did you review nursing and triage notes (agree or disagree)? Why? @ -I reviewed and agree with nursing and triage notes Were old charts reviewed (outside hosp., previous admission, EMS record, old EKG, old radiological studies, urgent care reports/EKG's, care home records)? Report findings @ -No old charts were reviewed Differential Diagnosis (chest pain, altered mental status, abdominal pain women, abdominal pain men, vaginal bleeding, weakness, fever, dyspnea, syncope, headache, dizziness, GI bleed, back pain, seizure, CVA, palpatations, mental health, musculoskeletal)? @ -Acute dyspnea EKG interpreted by me (3pts min.). @ -As above EKG interpreted by me sinus rhythm of 81 SC interval 145 QRS duration 90 QT/QTc 394/[address]-T wave changes seen X-rays interpreted by me (1pt min.). @ -'s x-ray interpreted by me no evidence of acute processes CT interpreted by me (1pt min.). @ -None done U/S interpreted by me (1pt. min.). @ -None done What testing was considered but not performed or refused? (CT, X-rays, U/S, labs)? Why? @ -None What meds were considered but not given or refused? Why? @ -None Did you discuss the management of the patient with other professionals (professionals i.e. AVILA Mendez, PHOTO MANAGER, lab, RT, psych nurse, pediatric social worker, umbrella frame maker, teacher, tactical/mobile watch officer, case filler)? Give summary @ -No Was smoking cessation discussed for >3mins.? @ -No Was critical care preformed (if so, how long)? @ -No Were there social determinants of health that impacted care today? How? (Homelessness, low income, unemployed, alcoholism, drug addiction, transportation, low edu. Level, literacy, decrease access to med. care, senior care, rehab)? @ -No Was there de-escalation of care discussed even if they declined (Discuss DNR or withdrawal of care, Hospice)? DNR status @ -No What co-morbidities impacted this encounter? (DM, HTN, Smoking, COPD, CAD, Cancer, CVA, ARF, Chemo, Hep., AIDS, mental health diagnosis, sleep apnea, morbid obesity)? @ -Asthma, CVA Was patient admitted / discharged? Hospital course, mention meds given and route, prescriptions, significant lab abnormalities, going to OR and other pertinent info. @ -Hospital course patient was discharged home on prescriptions for albuterol and ipratropium bromide inhaler, oral steroids, antibiotics Undiagnosed new problem with uncertain prognosis? @ -No Drug Therapy requiring intensive monitoring for toxicity (Heparin, Nitro, Insulin, Cardizem)? @ -No Were any procedures done? @ -No Diagnosis/symptom? @ -Acute asthma exacerbation, acute bronchitis, bronchospasm, lactic acidosis, dehydration Acute, or Chronic, or Acute on Chronic? @ -Acute Uncomplicated (without systemic symptoms) or Complicated (systemic symptoms)? @ -Complicated Side effects of treatment? @ -No Exacerbation, Progression, or Severe Exacerbation? @ -Exacerbation Poses a threat to life or bodily function? How? (Chest pain, [place], [place], pneumonia, PE, COPD, DKA, ARF, appy, cholecystitis, CVA, Diverticulitis, Homicidal, Suicidal, threat to staff... and all critical care pts) @ -Potential - Lab Data Result diagrams: 03/12/24 13:44 03/12/24 13:44 Lab Results 03/12/24 03/12/24 03/12/24 Range/Units 13:44 13:44 13:44 WBC 8.9 (3.8-10.6) k/uL RBC 4.27 (3.80-5.40) m/uL Hgb 13.3 (11.4-16.0) gm/dL Hct 41.8 (34.0-46.0) % MCV 97.8 (80.0-100.0) fL MCH 31.2 (25.0-35.0) pg MCHC 31.9 (31.0-37.0) g/dL RDW 13.7 (11.5-15.5) % Plt Count 319 (150-450) k/uL MPV 8.0 Neutrophils % 60 % Lymphocytes % 34 % Monocytes % 3 % Eosinophils % 1 % Basophils % 1 % Neutrophils # 5.3 (1.3-7.7) k/uL Lymphocytes # 3.1 (1.0-4.8) k/uL Monocytes # 0.2 (0-1.0) k/uL Eosinophils # 0.1 (0-0.7) k/uL Basophils # 0.1 (0-0.2) k/uL PT 10.7 (10.0-12.5) sec INR 1.0 (<1.2) APTT 29.1 (22.0-30.0) sec D-Dimer 0.39 (<0.60) mg/L FEU Sodium 142 (137-145) mmol/L Potassium 3.7 (3.5-5.1) mmol/L Chloride 105 (98-107) mmol/L Carbon Dioxide 24 (22-30) mmol/L Anion Gap 13 mmol/L BUN 7 (7-17) mg/dL Creatinine 0.51 L (0.52-1.04) mg/dL Est GFR (CKD-EPI)AfAm >90 (>60 ml/min/1.73 sqM) Est GFR (CKD-EPI)NonAf >90 (>60 ml/min/1.73 sqM) Glucose 91 (74-99) mg/dL Plasma Lactic Acid Juan C (0.7-2.0) mmol/L Calcium 10.1 (8.4-10.2) mg/dL Magnesium 1.8 (1.6-2.3) mg/dL Total Bilirubin 0.5 (0.2-1.3) mg/dL AST 33 (14-36) U/L ALT 19 (4-34) U/L Alkaline Phosphatase 112 (38-126) U/L Troponin I (0.000-0.034) ng/mL NT-Pro-B Natriuret Pep 103 pg/mL Total Protein 7.0 (6.3-8.2) g/dL Albumin 4.5 (3.5-5.0) g/dL Influenza Type A (PCR) (Not Detectd) Influenza Type B (PCR) (Not Detectd) RSV (PCR) (Not Detectd) SARS-CoV-2 (PCR) (Not Detectd) 04/21/24 04/21/24 04/21/24 Range/Units 13:44 13:44 13:57 WBC (3.8-10.6) k/uL RBC (3.80-5.40) m/uL Hgb (11.4-16.0) gm/dL Hct (34.0-46.0) % MCV (80.0-100.0) fL MCH (25.0-35.0) pg MCHC (31.0-37.0) g/dL RDW (11.5-15.5) % Plt Count (150-450) k/uL MPV Neutrophils % % Lymphocytes % % Monocytes % % Eosinophils % % Basophils % % Neutrophils # (1.3-7.7) k/uL Lymphocytes # (1.0-4.8) k/uL Monocytes # (0-1.0) k/uL Eosinophils # (0-0.7) k/uL Basophils # (0-0.2) k/uL PT (10.0-12.5) sec INR (<1.2) APTT (22.0-30.0) sec D-Dimer (<0.60) mg/L FEU Sodium (137-145) mmol/L Potassium (3.5-5.1) mmol/L Chloride (98-107) mmol/L Carbon Dioxide (22-30) mmol/L Anion Gap mmol/L BUN (7-17) mg/dL Creatinine (0.52-1.04) mg/dL Est GFR (CKD-EPI)AfAm (>60 ml/min/1.73 sqM) Est GFR (CKD-EPI)NonAf (>60 ml/min/1.73 sqM) Glucose (74-99) mg/dL Plasma Lactic Acid Juan C 4.0 H* (0.7-2.0) mmol/L Calcium (8.4-10.2) mg/dL Magnesium (1.6-2.3) mg/dL Total Bilirubin (0.2-1.3) mg/dL AST (14-36) U/L ALT (4-34) U/L Alkaline Phosphatase (38-126) U/L Troponin I <0.012 (0.000-0.034) ng/mL NT-Pro-B Natriuret Pep pg/mL Total Protein (6.3-8.2) g/dL Albumin (3.5-5.0) g/dL Influenza Type A (PCR) Not Detected (Not Detectd) Influenza Type B (PCR) Not Detected (Not Detectd) RSV (PCR) Not Detected (Not Detectd) SARS-CoV-2 (PCR) Not Detected (Not Detectd) Disposition Clinical Impression: Acute asthma exacerbation, Acute bronchospasm, Acute bronchitis, Lactic acidosis, Dehydration Disposition: HOME SELF-CARE Condition: Good Instructions (If sedation given, give patient instructions): Asthma (ED) Prescriptions: Amoxicillin 500 mg PO Q8H #21 capsule Ipratropium/Albuter 20-100Mcg [Combivent Respimat 20-100Mcg Inhaler] 1 puff INHALATION Q6HR PRN #4 gm PRN Reason: Dyspnea predniSONE [Deltasone] 20 mg PO BID #10 tab Is patient prescribed a controlled substance at d/c from ED?: No Referrals: None,Stated [Primary Care Provider] - 1-2 days Time of Disposition: 16:53 Decision Date: 03/12/24 Decision Time: 16:53
[2024-03-12 13:41] VITALS: TEMP 97.8
[2024-03-12] MEDS: methylPREDNISolone SOD SUCCI 125 MG/2 ML VIAL IV STA (13:53)
[2024-03-12] MEDS: SODIUM CHLORIDE 0.9% 1,000 ML IV STA (13:57)
[2024-03-12 14:17] LABS: Basophils # (A) 0.1 k/uL (0-0.2); Basophils % (A) 1 %; Eosinophils # (A) 0.1 k/uL (0-0.7); Eosinophils % (A) 1 %; HCT 41.8 % (34.0-46.0); HGB 13.3 gm/dL (11.4-16.0); Lymphocytes # (A) 3.1 k/uL (1.0-4.8); Lymphocytes % (A) 34 %; MCH 31.2 pg (25.0-35.0); MCHC 31.9 g/dL (31.0-37.0); MCV 97.8 fL (80.0-100.0); Monocytes # (A) 0.2 k/uL (0-1.0); Monocytes % (A) 3 %; Neutrophils # (A) 5.3 k/uL (1.3-7.7); Neutrophils % (A) 60 %; Platelet Count 319 k/uL (150-450); RBC 4.27 m/uL (3.80-5.40); RDW 13.7 % (11.5-15.5); WBC 8.9 k/uL (3.8-10.6)
[2024-03-12 14:34] LABS: Partial Thromboplastin Time 29.1 sec (22.0-30.0); Prothrombin Time 10.7 sec (10.0-12.5)
[2024-03-12 14:42] LABS: ALT 19 U/L (4-34); AST 33 U/L (14-36); African American GFR (CKD) >90 (>60 ml/min/1.73 sqM); Albumin 4.5 g/dL (3.5-5.0); Alkaline Phosphatase 112 U/L (38-126); Anion Gap 13 mmol/L; Blood Urea Nitrogen 7 mg/dL (7-17); Calcium 10.1 mg/dL (8.4-10.2); Carbon Dioxide 24 mmol/L (22-30); Chloride 105 mmol/L (98-107); Glucose 91 mg/dL (74-99); Magnesium 1.8 mg/dL (1.6-2.3); Non-African American GFR(CKD) >90 (>60 ml/min/1.73 sqM); Potassium 3.7 mmol/L (3.5-5.1); Sodium 142 mmol/L (137-145); Total Bilirubin 0.5 mg/dL (0.2-1.3)
[2024-03-12 14:49] LABS: NT-Pro-B-Type Natriuretic Pept 103 pg/mL
[2024-03-12] MEDS ORDERED: SODIUM CHLORIDE 0.9% 1,000 ML IV STA ×2 (15:25)
[2024-03-12] MEDS: IPRATROPIUM-ALBUTEROL 3 ML NEB INHALATION STA (15:58)
--- NOTE | 2024-03-12 16:22 | XR ---
EXAMINATION TYPE: XR chest 2V DATE OF EXAM: 03/12/2024 2:21 PM CLINICAL INDICATION:Female, 48 years old with history of difficulty breathing; [facility] COMPARISON: 08/24/2023 TECHNIQUE: XR chest 2V. Frontal and lateral views of the chest.. FINDINGS: Lines/Tubes/Devices: No indwelling lines are seen. Heart/mediastinum: Heart size is normal. Mediastinum appears normal. Pulmonary vascularity: Not increased, Lungs/Pleura: There is no evidence of pleural effusion, focal consolidation, or pneumothorax. Musculoskeletal: No acute osseous abnormality demonstrated in the limits of the exam. Other findings: None. IMPRESSION: No acute cardiopulmonary abnormality.
[2024-03-12 17:39] VITALS: BP 125/76; PULSE 86; RESP 18
== END 2024-03-12 17:28 | disposition home or self-care (01) ==
LOC: EC 13:12
DX: J20.9 Acute bronchitis, unspecified (principal); J45.901 Unspecified asthma with (acute) exacerbation; E86.0 Dehydration; E87.20 Acidosis, unspecified; F17.200 Nicotine dependence, unspecified, uncomplicated; Z88.8 Allergy status to other drugs, medicaments and biological substances; Z91.041 Radiographic dye allergy status; Z91.013 Allergy to seafood; Z86.73 Personal history of transient ischemic attack (TIA), and cerebral infarction without residual deficits
CPT/HCPCS: 36415; 94640; 93005; 85379; 83880; 80053; 83605; 83735; 84484; 85025; 85610; 85730; 87040; 87636; 71046; 99285; 96374; 96361 ×4; J2919

== ENCOUNTER 2024-03-14 09:10 | Emergency (ER) | payer BC ==
[2024-03-14 09:43] VITALS: RESP 18; TEMP 97.5
[2024-03-14 09:55] LABS: ABG HCO3 25 mmol/L (21-25); ABG Oxygen Saturation 95.7 % (94-97); ABG PCO2 34 mmHg (35-45); ABG PH 7.49 (7.35-7.45); ABG PO2 69 mmHg (83-108); ABG TCO2 27 mmol/L (19-24); Allen Test Performed? Yes
[2024-03-14] MEDS: methylPREDNISolone SOD SUCCI 125 MG/2 ML VIAL IV STA (09:58)
[2024-03-14] MEDS: IPRATROPIUM-ALBUTEROL 3 ML NEB INHALATION STA (09:59)
[2024-03-14 10:17] LABS: Basophils % (A) 0 %; Eosinophils % (A) 0 %; HCT 40.2 % (34.0-46.0); HGB 12.9 gm/dL (11.4-16.0); Lymphocytes # (A) 2.6 k/uL (1.0-4.8); Lymphocytes % (A) 17 %; MCH 31.6 pg (25.0-35.0); MCV 98.8 fL (80.0-100.0); Mean Platelet Volume 8.6; Monocytes # (A) 0.5 k/uL (0-1.0); Monocytes % (A) 3 %; Neutrophils # (A) 12.1 k/uL (1.3-7.7); Neutrophils % (A) 79 %; Platelet Count 312 k/uL (150-450); RBC 4.07 m/uL (3.80-5.40); RDW 14.4 % (11.5-15.5); WBC 15.4 k/uL (3.8-10.6)
[2024-03-14 10:26] LABS: INR 0.9 (<1.2); Partial Thromboplastin Time 26.1 sec (22.0-30.0); Prothrombin Time 10.4 sec (10.0-12.5)
[2024-03-14 10:29] LABS: ALT 23 U/L (4-34); AST 43 U/L (14-36); African American GFR (CKD) >90 (>60 ml/min/1.73 sqM); Albumin 4.3 g/dL (3.5-5.0); Alkaline Phosphatase 95 U/L (38-126); Anion Gap 12 mmol/L; Blood Urea Nitrogen 15 mg/dL (7-17); Calcium 10.2 mg/dL (8.4-10.2); Carbon Dioxide 23 mmol/L (22-30); Chloride 108 mmol/L (98-107); Glucose 114 mg/dL (74-99); Non-African American GFR(CKD) >90 (>60 ml/min/1.73 sqM); Potassium 3.9 mmol/L (3.5-5.1); Sodium 143 mmol/L (137-145); Total Bilirubin 0.3 mg/dL (0.2-1.3); Total Protein 6.7 g/dL (6.3-8.2)
[2024-03-14 10:36] LABS: NT-Pro-B-Type Natriuretic Pept 383 pg/mL
--- NOTE | 2024-03-14 10:38 | XR ---
EXAMINATION TYPE: XR chest 2V DATE OF EXAM: 03/14/2024 COMPARISON: 03/12/2024 HISTORY: Shortness of breath TECHNIQUE: Frontal and lateral views of the chest are obtained. FINDINGS: Scattered senescent parenchymal changes noted. Hyperinflation compatible with COPD. No evidence for infiltrate. No evidence for atelectasis. Bronchial wall thickening may reflect a bron chitis and/or asthma. Correlate clinically. Heart size is stable. Mediastinal structures are stable and grossly unremarkable. No evidence for hilar prominence. Degenerative changes dorsal spine. IMPRESSION: 1. Bronchial wall thickening may reflect a bronchitis and/or asthma. Correlate clinically.
[2024-03-14] MEDS: SODIUM CHLORIDE 0.9% 2,000 ML IV ONE (11:02)
[2024-03-14 11:31] LABS: Alcohol 245 mg/dL
--- NOTE | 2024-03-14 11:50 | ED ---
URI HPI - General Chief Complaint: Upper Respiratory Infection Stated Complaint: MARY Time Seen by Provider: 03/14/24 09:17 Source: patient, EMS, RN notes reviewed Mode of arrival: EMS Limitations: altered mental status, physical limitation - History of Present Illness Initial Comments: 48-year-old female presents emergency department chief complaint of shortness of breath. Patient states she has been having increasing shortness of breath she has been doing multiple breathing treatments which she states she has been doing them all night long. Patient was seen here earlier today was placed on steroids, antibiotics. Patient states she does have asthma but states she is a smoker patient states that she is not been officially diagnosed with COPD she reports fevers patient has no complaints abdominal pain. No complaints of headache. Patient is requesting ABG as she states she has had multiple abnormal ABGs in the past - Related Data Home Medications Medication Instructions Recorded Confirmed ePHEDrine sulfate [Bronkaid Max] 25 mg PO Q4H PRN 02/03/24 02/03/24 Albuterol Inhaler [Ventolin Hfa 2 puff INHALATION RT-Q6H PRN 03/14/24 03/14/24 Inhaler] EPINEPHrine (Auto Inject) [Epipen] 0.3 mg IM ONCE PRN 03/14/24 03/14/24 Ipratropium-Albuterol Nebulize 3 ml INHALATION RT-QID PRN 03/14/24 03/14/24 [Duoneb 0.5 mg-3 mg/3 ml Soln] Omeprazole Magnesium [PriLOSEC OTC] 20 mg PO DAILY 03/14/24 03/14/24 Allergies Allergy/AdvReac Type Severity Reaction Status Date / Time Iodinated Contrast Media Allergy Anaphylaxis Verified 03/14/24 12:26 iodine Allergy Anaphylaxis Verified 03/14/24 12:26 shellfish derived [Shellfish] Allergy Anaphylaxis Verified 03/14/24 12:26 Review of Systems ROS Statement: Those systems with pertinent positive or pertinent negative responses have been documented in the HPI. ROS Other: All systems not noted in ROS Statement are negative. Past Medical History Past Medical History: Asthma, CVA/TIA, Pneumonia Additional Past Medical History / Comment(s): TIA, stage 1 kidney disease History of Any Multi-Drug Resistant Organisms: None Reported Past Surgical History: Orthopedic Surgery, Tonsillectomy, Tubal Ligation Additional Past Surgical History / Comment(s): Right leg surgery. Past Anesthesia/Blood Transfusion Reactions: No Reported Reaction Past Psychological History: No Psychological Hx Reported Smoking Status: Current every day smoker, Vaper Past Alcohol Use History: Abuse, Daily Past Drug Use History: None Reported - Past Family History Mother Family Medical History: Hypertension General Exam Limitations: altered mental status, physical limitation General appearance: alert, in no apparent distress Head exam: Present: atraumatic, normocephalic, normal inspection Respiratory exam: Present: respiratory distress, wheezes. Absent: normal lung sounds bilaterally, rhonchi, stridor, chest wall tenderness Cardiovascular Exam: Present: normal rhythm, tachycardia, normal heart sounds. Absent: systolic murmur, diastolic murmur, rubs, gallop, clicks GI/Abdominal exam: Present: soft, normal bowel sounds. Absent: distended, tenderness, guarding, rebound, rigid Course Vital Signs 03/14/24 03/14/24 03/14/24 09:12 09:40 10:00 Temperature 97.5 F L Pulse Rate 104 H 105 H 103 H Respiratory 18 Rate Blood Pressure 116/90 O2 Sat by Pulse 94 L 85 L Oximetry 03/14/24 03/14/24 10:12 12:35 Temperature Pulse Rate 104 H 88 Respiratory 18 Rate Blood Pressure 125/79 O2 Sat by Pulse 97 Oximetry Medical Decision Making - Medical Decision Making Was pt. sent in by a medical professional or institution ([facility], CE[employer]IP[employer], urgent care, hospital, or penitentiary...) When possible be specific @ -No Did you speak to anyone other than the patient for history (EMS, parent, family, police, friend...)? What history was obtained from this source @ -No Did you review nursing and triage notes (agree or disagree)? Why? @ -I reviewed and agree with nursing and triage notes Were old charts reviewed (outside hosp., previous admission, EMS record, old EKG, old radiological studies, urgent care reports/EKG's, penitentiary records)? Report findings @ -No old charts were reviewed Differential Diagnosis (chest pain, altered mental status, abdominal pain women, abdominal pain men, vaginal bleeding, weakness, fever, dyspnea, syncope, headache, dizziness, GI bleed, back pain, seizure, CVA, palpatations, mental health, musculoskeletal)? @ -Differential Dyspnea: Coronary syndrome, arrhythmia, tamponade, asthma, COPD, pulmonary embolism, pneumonia, pneumothorax, pulmonary effusion, anaphylaxis, diabetic ketoacidosis, flailed chest, pulmonary contusion, diaphragmatic rupture, anemia, neuromuscular, this is not meant to be an all-inclusive list. EKG interpreted by me (3pts min.). @ -As above X-rays interpreted by me (1pt min.). @ -Chest x-ray shows asthma/bronchitis type changes. CT interpreted by me (1pt min.). @ -None done U/S interpreted by me (1pt. min.). @ -None done What testing was considered but not performed or refused? (CT, X-rays, U/S, labs)? Why? @ -None What meds were considered but not given or refused? Why? @ -None Did you discuss the management of the patient with other professionals (nikia jovel i.e. , PA, [employer], lab, RT, psych nurse, social human services assistants, chemical operator, teacher, associate loan officer, hospice case manager)? Give summary @ -No Was smoking cessation discussed for >3mins.? @ -No Was critical care preformed (if so, how long)? @ -No Were there social determinants of health that impacted care today? How? (Homelessness, low income, unemployed, alcoholism, drug addiction, transportation, low edu. Level, literacy, decrease access to med. care, alf, rehab)? @ -No Was there de-escalation of care discussed even if they declined (Discuss DNR or withdrawal of care, Hospice)? DNR status @ -No What co-morbidities impacted this encounter? (DM, HTN, Smoking, COPD, CAD, Cancer, CVA, ARF, Chemo, Hep., AIDS, mental health diagnosis, sleep apnea, morbid obesity)? @ -[Asthma, alcohol abuse Was patient admitted / discharged? Hospital course, mention meds given and route, prescriptions, significant lab abnormalities, going to OR and other pertinent info. @ -Discharge patient presented for shortness of breath. Patient is greatly improved after DuoNeb treatment, Solu-Medrol. Patient does have lactic acidosis related to her alcohol abuse she is afebrile not hypotensive, patient offered admission patient declines. Patient notified that she needs to have a ride home. She does have an elevated alcohol level though she is awake alert and orientated x 4. Patient's wheezing has resolved pulse ox within normal limits. Patient discharged in stable condition Undiagnosed new problem with uncertain prognosis? @ -No Drug Therapy requiring intensive monitoring for toxicity (Heparin, Nitro, Insulin, Cardizem)? @ -No Were any procedures done? @ -No Diagnosis/symptom? @ -Asthma laceration, dyspnea, acute c bronchitis Acute, or Chronic, or Acute on Chronic? @ -Acute Uncomplicated (without systemic symptoms) or Complicated (systemic symptoms)? @ -Complicated Side effects of treatment? @ -No Exacerbation, Progression, or Severe Exacerbation? @ -No Poses a threat to life or bodily function? How? (Chest pain, [place], [place], pneumonia, PE, COPD, DKA, ARF, appy, cholecystitis, CVA, Diverticulitis, Homicidal, Suicidal, threat to staff... and all critical care pts) @ -No - Lab Data Result diagrams: 03/14/24 09:50 03/14/24 09:50 Lab Results 03/14/24 03/14/24 03/14/24 Range/Units 09:50 09:50 09:50 WBC 15.4 H (3.8-10.6) k/uL RBC 4.07 (3.80-5.40) m/uL Hgb 12.9 (11.4-16.0) gm/dL Hct 40.2 (34.0-46.0) % MCV 98.8 (80.0-100.0) fL MCH 31.6 (25.0-35.0) pg MCHC 32.0 (31.0-37.0) g/dL RDW 14.4 (11.5-15.5) % Plt Count 312 (150-450) k/uL MPV 8.6 Neutrophils % 79 % Lymphocytes % 17 % Monocytes % 3 % Eosinophils % 0 % Basophils % 0 % Neutrophils # 12.1 H (1.3-7.7) k/uL Lymphocytes # 2.6 (1.0-4.8) k/uL Monocytes # 0.5 (0-1.0) k/uL Eosinophils # 0.0 (0-0.7) k/uL Basophils # 0.0 (0-0.2) k/uL PT 10.4 (10.0-12.5) sec INR 0.9 (<1.2) APTT 26.1 (22.0-30.0) sec Sample Site ABG pH (7.35-7.45) ABG pCO2 (35-45) mmHg ABG pO2 (83-108) mmHg ABG HCO3 (21-25) mmol/L ABG Total CO2 (19-24) mmol/L ABG O2 Saturation (94-97) % ABG Base Excess mmol/L Vince Test FiO2 % Sodium 143 (137-145) mmol/L Potassium 3.9 (3.5-5.1) mmol/L Chloride 108 H (98-107) mmol/L Carbon Dioxide 23 (22-30) mmol/L Anion Gap 12 mmol/L BUN 15 (7-17) mg/dL Creatinine 0.52 (0.52-1.04) mg/dL Est GFR (CKD-EPI)AfAm >90 (>60 ml/min/1.73 sqM) Est GFR (CKD-EPI)NonAf >90 (>60 ml/min/1.73 sqM) Glucose 114 H (74-99) mg/dL Plasma Lactic Acid Juan C (0.7-2.0) mmol/L Calcium 10.2 (8.4-10.2) mg/dL Magnesium 2.0 (1.6-2.3) mg/dL Total Bilirubin 0.3 (0.2-1.3) mg/dL AST 43 H (14-36) U/L ALT 23 (4-34) U/L Alkaline Phosphatase 95 (38-126) U/L Troponin I (0.000-0.034) ng/mL NT-Pro-B Natriuret Pep 383 pg/mL Total Protein 6.7 (6.3-8.2) g/dL Albumin 4.3 (3.5-5.0) g/dL Serum Alcohol 245 H* mg/dL 03/14/24 03/14/24 03/14/24 Range/Units 09:50 09:50 09:50 WBC (3.8-10.6) k/uL RBC (3.80-5.40) m/uL Hgb (11.4-16.0) gm/dL Hct (34.0-46.0) % MCV (80.0-100.0) fL MCH (25.0-35.0) pg MCHC (31.0-37.0) g/dL RDW (11.5-15.5) % Plt Count (150-450) k/uL MPV Neutrophils % % Lymphocytes % % Monocytes % % Eosinophils % % Basophils % % Neutrophils # (1.3-7.7) k/uL Lymphocytes # (1.0-4.8) k/uL Monocytes # (0-1.0) k/uL Eosinophils # (0-0.7) k/uL Basophils # (0-0.2) k/uL PT (10.0-12.5) sec INR (<1.2) APTT (22.0-30.0) sec Sample Site rrad ABG pH 7.49 H (7.35-7.45) ABG pCO2 34 L (35-45) mmHg ABG pO2 69 L (83-108) mmHg ABG HCO3 25 (21-25) mmol/L ABG Total CO2 27 H (19-24) mmol/L ABG O2 Saturation 95.7 (94-97) % ABG Base Excess 2.0 mmol/L Vince Test Yes FiO2 21 % Sodium (137-145) mmol/L Potassium (3.5-5.1) mmol/L Chloride (98-107) mmol/L Carbon Dioxide (22-30) mmol/L Anion Gap mmol/L BUN (7-17) mg/dL Creatinine (0.52-1.04) mg/dL Est GFR (CKD-EPI)AfAm (>60 ml/min/1.73 sqM) Est GFR (CKD-EPI)NonAf (>60 ml/min/1.73 sqM) Glucose (74-99) mg/dL Plasma Lactic Acid Juan C 5.8 H* (0.7-2.0) mmol/L Calcium (8.4-10.2) mg/dL Magnesium (1.6-2.3) mg/dL Total Bilirubin (0.2-1.3) mg/dL AST (14-36) U/L ALT (4-34) U/L Alkaline Phosphatase (38-126) U/L Troponin I <0.012 (0.000-0.034) ng/mL NT-Pro-B Natriuret Pep pg/mL Total Protein (6.3-8.2) g/dL Albumin (3.5-5.0) g/dL Serum Alcohol mg/dL - EKG Data -: EKG Interpreted by Me EKG Comments: EKG performed at 10: 05 sinus rhythm with short [place] rate of 87 [place] 118 QRS 98 QT/QTc 372/417 Disposition Clinical Impression: Acute asthma exacerbation, Acute bronchospasm, Acute bronchitis, Alcohol intoxi cation Disposition: HOME SELF-CARE Condition: Stable Instructions (If sedation given, give patient instructions): Upper Respiratory Infection (ED) Additional Instructions: Take medications as directed and prescribed at your prior ER visit. Please return to the Emergency Department if symptoms worsen or any other concerns. Is patient prescribed a controlled substance at d/c from ED?: No Referrals: None,Stated [Primary Care Provider] - 1-2 days Time of Disposition: 12:19
[2024-03-14 12:45] VITALS: BP 125/79; PULSE 88
== END 2024-03-14 12:45 | disposition home or self-care (01) ==
LOC: EC 09:10
DX: J45.901 Unspecified asthma with (acute) exacerbation (principal); J20.9 Acute bronchitis, unspecified; F10.129 Alcohol abuse with intoxication, unspecified; F17.290 Nicotine dependence, other tobacco product, uncomplicated; Z91.041 Radiographic dye allergy status; Z88.8 Allergy status to other drugs, medicaments and biological substances; Z91.013 Allergy to seafood; Z86.73 Personal history of transient ischemic attack (TIA), and cerebral infarction without residual deficits
CPT/HCPCS: 36415; 94640; 36600; 93005; 83880; 80053; 82805; 83605; 83735; 84484; 85025; 85610; 85730; 80320; 71046; 99285; 96374; 96361 ×2; J2919

== ENCOUNTER 2024-05-12 15:35 | Observation (INO) | payer BC, OTHER ==
--- NOTE | 2024-05-12 18:12 | ED ---
General Adult HPI - General Chief complaint: Psychiatric Symptoms Stated complaint: Mental health eval Time Seen by Provider: 05/12/24 17:05 Source: patient, RN notes reviewed, old records reviewed Mode of arrival: ambulatory Limitations: no limitations - History of Present Illness Initial comments: 48-year-old female history of alcohol abuse presents with visual hallucination and tremor. Patient states her last drink was 10 days ago. She had contacted police prior to arrival regarding the safety of several of her family members. Her is at bedside and states that this was a hallucination. Patient does understand this at this point. She has significant tremor and states she has not had anything to eat in the past several days and has not slept. She has a remote history of alcohol withdrawal seizure. - Related Data Home Medications Medication Instructions Recorded Confirmed No Known Home Medications 05/12/24 05/12/24 Allergies Allergy/AdvReac Type Severity Reaction Status Date / Time Iodinated Contrast Media Allergy Anaphylaxis Verified 05/12/24 20:37 iodine Allergy Anaphylaxis Verified 05/12/24 20:37 shellfish derived [Shellfish] Allergy Anaphylaxis Verified 05/12/24 20:37 Review of Systems ROS Statement: Those systems with pertinent positive or pertinent negative responses have been documented in the HPI. ROS Other: All systems not noted in ROS Statement are negative. Past Medical History Past Medical History: Asthma, CVA/TIA, Pneumonia Additional Past Medical History / Comment(s): TIA, stage 1 kidney disease History of Any Multi-Drug Resistant Organisms: None Reported Past Surgical History: Orthopedic Surgery, Tonsillectomy, Tubal Ligation Additional Past Surgical History / Comment(s): Right leg surgery. Past Anesthesia/Blood Transfusion Reactions: No Reported Reaction Past Psychological History: No Psychological Hx Reported Smoking Status: Current every day smoker, Vaper Past Alcohol Use History: Abuse, Daily Past Drug Use History: None Reported - Past Family History Mother Family Medical History: Hypertension General Exam Limitations: no limitations General appearance: alert, in no apparent distress Head exam: Present: atraumatic, normocephalic Eye exam: Present: normal appearance, PERRL Neck exam: Present: normal inspection. Absent: tenderness, meningismus Respiratory exam: Present: normal lung sounds bilaterally. Absent: respiratory distress, wheezes Cardiovascular Exam: Present: regular rate, normal rhythm GI/Abdominal exam: Present: soft. Absent: distended, tenderness, guarding Extremities exam: Present: normal inspection, normal capillary refill. Absent: pedal edema Neurological exam: Present: alert, oriented X3. Absent: motor sensory deficit Psychiatric exam: Present: anxious Skin exam: Present: warm, dry, intact Course Vital Signs 05/12/24 15:57 Temperature 98 F Pulse Rate 94 Respiratory 20 Rate Blood Pressure 165/95 O2 Sat by Pulse 99 Oximetry Medical Decision Making - Medical Decision Making Was pt. sent in by a medical professional or institution (, [facility], BURNISHING MACHINE OPERATOR, urgent care, hospital, or longterm...) When possible be specific @ -No Did you speak to anyone other than the patient for history (EMS, parent, family, police, friend...)? What history was obtained from this source @ -No Did you review nursing and triage notes (agree or disagree)? Why? @ -I reviewed and agree with nursing and triage notes Were old charts reviewed (outside hosp., previous admission, EMS record, old EKG, old radiological studies, urgent care reports/EKG's, longterm records)? Report findings @ -No old charts were reviewed Differential Diagnosis delirium tremens, alcohol withdrawal, seizure EKG interpreted by me (3pts min.). @ -As above X-rays interpreted by me (1pt min.). @ -None done CT interpreted by me (1pt min.). @ Ct brain negative for intracranial hemorrhage or mass effect U/S interpreted by me (1pt. min.). @ -None done What testing was considered but not performed or refused? (CT, X-rays, U/S, labs)? Why? @ -None What meds were considered but not given or refused? Why? @ -None Did you discuss the management of the patient with other professionals (professionals i.e. , [facility], BURNISHING MACHINE OPERATOR, lab, RT, psych nurse, social work supervisor, butcher chicken and fish, teacher, chief operating officer, test case developer)? Give summary @ -Dr. Merida Was smoking cessation discussed for >3mins.? @ -No Was critical care preformed (if so, how long)? @ -No Were there social determinants of health that impacted care today? How? (Homelessness, low income, unemployed, alcoholism, drug addiction, transport ation, low edu. Level, literacy, decrease access to med. care, snf, rehab)? @ -No Was there de-escalation of care discussed even if they declined (Discuss DNR or withdrawal of care, Hospice)? DNR status @ -No What co-morbidities impacted this encounter? (DM, HTN, Smoking, COPD, CAD, Cancer, CVA, ARF, Chemo, Hep., AIDS, mental health diagnosis, sleep apnea, morbid obesity)? @ -Alcohol abuse Was patient admitted / discharged? Hospital course, mention meds given and route, prescriptions, significant lab abnormalities, going to OR and other pertinent info. @ -[48-year-old female presenting with hallucination, concern for alcohol withdrawal. Patient placed on benzodiazepines for withdrawal. Her electrolytes are replaced including hypokalemia and hypomagnesemia. I did perform head CT due to head injury within the past 1 week. This was negative for intracranial hemorrhage or mass effect. Patient admitted to [facility]. Undiagnosed new problem with uncertain prognosis? @ -No Drug Therapy requiring intensive monitoring for toxicity (Heparin, Nitro, Insulin, Cardizem)? @ -No Were any procedures done? @ -No Diagnosis/symptom? @ -[Alcohol withdrawal syndrome Acute, or Chronic, or Acute on Chronic? @ -Acute Uncomplicated (without systemic symptoms) or Complicated (systemic symptoms)? @ -Default Side effects of treatment? @ -No Exacerbation, Progression, or Severe Exacerbation? @ -No Poses a threat to life or bodily function? How? (Chest pain, [place], [place], pneumonia, PE, COPD, DKA, ARF, appy, cholecystitis, CVA, Diverticulitis, Homicidal, Suicidal, threat to staff... and all critical care pts) @ -Yes, delirium tremens, alcohol withdrawal seizure] - Lab Data Result diagrams: 05/12/24 18:23 05/12/24 18:23 Lab Results 05/12/24 05/12/24 Range/Units 18:23 18:23 WBC 8.8 (3.8-10.6) k/uL RBC 3.76 L (3.80-5.40) m/uL Hgb 13.1 (11.4-16.0) gm/dL Hct 40.4 (34.0-46.0) % MCV 107.5 H D (80.0-100.0) fL MCH 34.8 (25.0-35.0) pg MCHC 32.4 (31.0-37.0) g/dL RDW 15.4 (11.5-15.5) % Plt Count 268 (150-450) k/uL MPV 9.5 Neutrophils % 67 % Lymphocytes % 24 % Monocytes % 6 % Eosinophils % 1 % Basophils % 1 % Neutrophils # 5.9 (1.3-7.7) k/uL Lymphocytes # 2.1 (1.0-4.8) k/uL Monocytes # 0.5 (0-1.0) k/uL Eosinophils # 0.1 (0-0.7) k/uL Basophils # 0.1 (0-0.2) k/uL Manual Slide Review Performed Macrocytosis Marked A Sodium 138 (137-145) mmol/L Potassium 3.1 L (3.5-5.1) mmol/L Chloride 106 (98-107) mmol/L Carbon Dioxide 22 (22-30) mmol/L Anion Gap 10 mmol/L BUN 9 (7-17) mg/dL Creatinine 0.52 (0.52-1.04) mg/dL Est GFR (CKD-EPI)AfAm >90 (>60 ml/min/1.73 sqM) Est GFR (CKD-EPI)NonAf >90 (>60 ml/min/1.73 sqM) Glucose 95 (74-99) mg/dL Calcium 11.0 H (8.4-10.2) mg/dL Magnesium 1.2 L (1.6-2.3) mg/dL Total Bilirubin 0.7 (0.2-1.3) mg/dL AST 90 H (14-36) U/L ALT 139 H (4-34) U/L Alkaline Phosphatase 95 (38-126) U/L Total Protein 7.5 (6.3-8.2) g/dL Albumin 4.9 (3.5-5.0) g/dL Disposition Clinical Impression: Alcohol withdrawal delirium Disposition: ADMITTED IP TO THIS HOSP Condition: Stable Is patient prescribed a controlled substance at d/c from ED?: No Referrals: None,Stated [Primary Care Provider] - 1-2 days Time of Disposition: 20:56
[2024-05-12] MEDS ORDERED: LORazepam 2 MG/ML INJ IV PRN ×3 (18:23)
[2024-05-12] MEDS: LORazepam 2 MG/ML INJ IV STA (18:46)
[2024-05-12] MEDS: THIAMINE 100 MG/ML 2 ML VIAL IM STA (18:47)
[2024-05-12] MEDS: SODIUM CHLORIDE 0.9% 500 ML 500 ML IV ONE (18:51)
[2024-05-12 19:06] LABS: ALT 139 U/L (4-34); AST 90 U/L (14-36); African American GFR (CKD) >90 (>60 ml/min/1.73 sqM); Albumin 4.9 g/dL (3.5-5.0); Alkaline Phosphatase 95 U/L (38-126); Anion Gap 10 mmol/L; Basophils # (A) 0.1 k/uL (0-0.2); Basophils % (A) 1 %; Blood Urea Nitrogen 9 mg/dL (7-17); Carbon Dioxide 22 mmol/L (22-30); Chloride 106 mmol/L (98-107); Eosinophils # (A) 0.1 k/uL (0-0.7); Eosinophils % (A) 1 %; Glucose 95 mg/dL (74-99); HCT 40.4 % (34.0-46.0); HGB 13.1 gm/dL (11.4-16.0); Lymphocytes # (A) 2.1 k/uL (1.0-4.8); Lymphocytes % (A) 24 %; MCH 34.8 pg (25.0-35.0); MCHC 32.4 g/dL (31.0-37.0); Macrocytosis Marked; Magnesium 1.2 mg/dL (1.6-2.3); Mean Platelet Volume 9.5; Monocytes # (A) 0.5 k/uL (0-1.0); Monocytes % (A) 6 %; Neutrophils # (A) 5.9 k/uL (1.3-7.7); Neutrophils % (A) 67 %; Non-African American GFR(CKD) >90 (>60 ml/min/1.73 sqM); Platelet Count 268 k/uL (150-450); Potassium 3.1 mmol/L (3.5-5.1); RBC 3.76 m/uL (3.80-5.40); RDW 15.4 % (11.5-15.5); Sodium 138 mmol/L (137-145); Total Bilirubin 0.7 mg/dL (0.2-1.3); Total Protein 7.5 g/dL (6.3-8.2); WBC 8.8 k/uL (3.8-10.6)
[2024-05-12 19:08] LABS: MCV 107.5 fL (80.0-100.0)
--- NOTE | 2024-05-12 19:40 | CT ---
EXAMINATION TYPE: CT brain wo con DATE OF EXAM: 05/12/2024 COMPARISON: 02/03/2024 HISTORY: Pt stopped drinking alcohol 10 days ago. Pt started hallucinating today, has not slept in [address] left eye[address] DLP: 1184.4 mGycm Automated exposure control for dose reduction was used. Findings: The ventricles, basal cisterns and sulci over the convexities are within normal limits and there is n o mass effect or shift of midline structures. No abnormal density is seen throughout the brain parenchyma and there is no acute intra or extra-axia l hemorrhage. The posterior fossa including the brainstem, fourth ventricle and cerebellar pontine angles appear no rmal. Intraorbital contents appear normal and symmetric. Visualized paranasal sinuses and mastoid air cells are well aerated. The calvarium is intact. IMPRESSION: No significant abnormality seen. There is no acute bleed or mass effect.
[2024-05-12] MEDS: POTASSIUM CHLORIDE ER 20 MEQ TAB.ER PO STA (20:45)
[2024-05-12] MEDS: SODIUM CHLORIDE 0.9% 1,000 ML IV SCH (20:45)
[2024-05-12] MEDS: MAGNESIUM SULFATE-D5W PMX 1 GM in DEXTROSE/WATER 1 100ML.BAG IVPB SCH (20:46)
[2024-05-12] MEDS ORDERED: NALOXONE 0.4 MG/ML 1 ML VIAL IV PRN (20:52)
--- NOTE | 2024-05-13 03:15 | P.HPIM ---
History of Present Illness H&P Date: 05/12/24 Patient is a 48-year-old female with a PMH of alcohol abuse with history of delirium tremens and asthma who presents to the emergency room with complaints of shakiness and hallucinations. Patient reported she feels she is seeing things that are not there and has been feeling on edge and been unable to sleep. She has been trying to cut down on her alcohol use from 1 L of rum daily with her last drink roughly 10 days ago. Denies experiencing chest discomfort, shortness of breath, fever, chills, cough, nausea, vomiting, abdominal pain, diarrhea. CT brain in the emergency room was unremarkable with laboratory evaluation showing an MCV of 107.5, potassium 3.1, magnesium 1.2, AST 90, ALT 139. ED documentation reviewed and case discussed with ED provider. Review of systems: Pertinent positives and negatives as discussed in HPI, a complete review of systems was performed and all other systems are negative. Physical examination: Vital signs reviewed General: Somewhat ill-appearing tremulous female, appears at stated age, normal weight Derm: no unusual rashes/lesions, warm Head: atraumatic, normocephalic, symmetric Eyes: EOMI, no lid lag, anicteric sclera, pupils equal round reactive to light ENT: Nose and ears atraumatic Neck: No cervical lymphadenopathy, trachea midline, supple Mouth: no lip lesion, mucus membranes moist, tongue fasciculations Cardiovascular: S1S2 reg, no murmur, positive dorsalis pedis pulse bilateral, no edema Lungs: CTA bilateral, no rhonchi, no rales, no accessory muscle use Abdominal: soft, nontender to palpation, no guarding Ext: muscle strength 5 out of 5 in all 4 extremities grossly, no gross muscle atrophy, no contractures, Neuro: CN II-XI grossly intact, no gross focal neuro deficits, outstretched hand tremor noted Psych: Alert, oriented, appropriate affect Assessment: Alcohol withdrawal Hypokalemia and hypomagnesemia Macrocytosis Imaging: CT brain in the emergency room was unremarkable Data Review: Laboratory evaluation showed an MCV of 107.5, potassium 3.1, magnesium 1.2, AST 90, ALT 139. Plan: CIWA Protocol with Ativan as needed Cardiac monitoring Fall precautions Monitor electrolytes daily Continue with IV fluids normal saline 75 cc/h Continue with thiamine Replace potassium and magnesium and monitor for improvement Check B12 and folate levels DVT prophylaxis: Lovenox subcu The patient is admitted with an anticipated fewer than 2 midnight stay for evaluation of alcohol withdrawal CODE STATUS: Full Code Discussed with: Patient Anticipated discharge place: Home Past Medical History Past Medical History: Asthma, CVA/TIA, Pneumonia Additional Past Medical History / Comment(s): TIA, stage 1 kidney disease History of Any Multi-Drug Resistant Organisms: None Reported Past Surgical History: Orthopedic Surgery, Tonsillectomy, Tubal Ligation Additional Past Surgical History / Comment(s): Right leg surgery. Past Anesthesia/Blood Transfusion Reactions: No Reported Reaction Past Psychological History: No Psychological Hx Reported Smoking Status: Current every day smoker, Vaper Past Alcohol Use History: Abuse, Daily Past Drug Use History: None Reported - Past Family History Mother Family Medical History: Hypertension Medications and Allergies Home Medications Medication Instructions Recorded Confirmed Type No Known Home Medications 05/12/24 05/12/24 History Allergies Allergy/AdvReac Type Severity Reaction Status Date / Time Iodinated Contrast Media Allergy Anaphylaxis Verified 05/12/24 20:37 iodine Allergy Anaphylaxis Verified 05/12/24 20:37 shellfish derived [Shellfish] Allergy Anaphylaxis Verified 05/12/24 20:37 Physical Exam Vitals: Vital Signs Temp Pulse Resp BP Pulse Ox 05/12/24 15:57 98 F 94 20 165/95 99 Intake and Output 05/12/24 05/12/24 05/13/24 14:59 22:59 06:59 Other: Weight 58.967 kg Results CBC & Chem 7: 05/12/24 18:23 05/12/24 18:23 Labs: Abnormal Lab Results - Last 24 Hours (Table) 05/12/24 05/12/24 Range/Units 18:23 18:23 RBC 3.76 L (3.80-5.40) m/uL MCV 107.5 H D (80.0-100.0) fL Macrocytosis Marked A Potassium 3.1 L (3.5-5.1) mmol/L Calcium 11.0 H (8.4-10.2) mg/dL Magnesium 1.2 L (1.6-2.3) mg/dL AST 90 H (14-36) U/L ALT 139 H (4-34) U/L
[2024-05-13 07:06] VITALS: RESP 18
[2024-05-13 07:34] LABS: HGB 11.7 gm/dL (11.4-16.0); MCH 35.1 pg (25.0-35.0); MCHC 32.6 g/dL (31.0-37.0); MCV 107.8 fL (80.0-100.0); Macrocytosis Marked; Mean Platelet Volume 9.7; Platelet Count 246 k/uL (150-450); RBC 3.34 m/uL (3.80-5.40); RDW 15.9 % (11.5-15.5); WBC 7.3 k/uL (3.8-10.6)
[2024-05-13 07:57] LABS: African American GFR (CKD) >90 (>60 ml/min/1.73 sqM); Anion Gap 3 mmol/L; Blood Urea Nitrogen 8 mg/dL (7-17); Calcium 9.7 mg/dL (8.4-10.2); Carbon Dioxide 24 mmol/L (22-30); Chloride 113 mmol/L (98-107); Glucose 75 mg/dL (74-99); Non-African American GFR(CKD) >90 (>60 ml/min/1.73 sqM); Potassium 4.4 mmol/L (3.5-5.1); Sodium 140 mmol/L (137-145)
[2024-05-13] MEDS: THIAMINE 100 MG TAB PO SCH (10:35)
[2024-05-13] MEDS: ENOXAPARIN 40 MG/0.4 ML SYRINGE SQ SCH (10:35)
[2024-05-13 10:36] VITALS: BMI 23.8
[2024-05-13 12:34] VITALS: BP 110/71; PULSE 73; TEMP 98.4
--- NOTE | 2024-05-13 12:41 | P.DS ---
Providers Date of admission: 05/12/24 20:52 Expected date of discharge: 05/13/24 Attending physician: Lara Merida MD Primary care physician: Stated None Hospital Course: Patient is a 48-year-old female with a PMH of alcohol abuse with history of delirium tremens and asthma who presents to the emergency room with complaints of shakiness and hallucinations. Patient reported she feels she is seeing things that are not there and has been feeling on edge and been unable to sleep. She has been trying to cut down on her alcohol use from 1 L of rum daily with her last drink roughly 10 days ago. Denies experiencing chest discomfort, shor tness of breath, fever, chills, cough, nausea, vomiting, abdominal pain, diarrhea. CT brain in the emergency room was unremarkable with laboratory evaluation showing an MCV of 107.5, potassium 3.1, magnesium 1.2, AST 90, ALT 139. 05/13 Patient was seen and examined. No more hallucinations. Able to get some sleep. States she tripped over a bin and hit her left eye. She denies any LOC. CBC RBC 3.34, MCV 107.8, MHC 35.1, RDW 15.9. BMP Cl 113, Cr 0.47. BP 110/71, HR 73. She feels comfortable going home. Does not plan on drinking. Plans for discharge home today on Ativan PRN for 3 days. Advised not to mix alcohol and ativan as it can lead to respiratory depression and sudden . General: appears at stated age, normal weight Derm: no unusual rashes/lesions, warm Head: atraumatic, normocephalic, symmetric Eyes: EOMI, no lid lag, anicteric sclera, echymosis over the left eye Neck: No cervical lymphadenopathy, trachea midline, supple Mouth: no lip lesion, mucus membranes moist Cardiovascular: S1S2 reg, no murmur, no edema Lungs: CTA bilateral, no rhonchi, no rales, no accessory muscle use Ext: muscle strength 5 out of 5 in all 4 extremities grossly, no gross muscle atrophy, no contractures, Neuro: no gross focal neuro deficits Psych: Alert, oriented, appropriate affect Discharge Diagnosis: Alcohol withdrawal Visual hallucination Fall Transaminitis Hypokalemia and hypomagnesemia Macrocytosis This complex discharge took 35 minutes to complete. Patient Condition at Discharge: Stable Plan - Discharge Summary Discharge Rx Participant: Yes New Discharge Prescriptions: New LORazepam [Ativan] 1 mg PO TID PRN 3 Days #9 tab PRN Reason: Alcohol Withdrawal Discharge Medication List LORazepam [Ativan] 1 mg PO TID PRN 3 Days #9 tab 05/13/24 [Rx] Follow up Appointment(s)/Referral(s): None,Stated [Primary Care Provider] - 1-2 days Patient Instructions/Handouts: Alcohol Withdrawal (DC) Discharge Disposition: HOME SELF-CARE
== END 2024-05-13 12:40 | disposition home or self-care (01) ==
LOC: EC 15:35 → 4SSUR 20:52
PROVIDERS: ADMIT Internal Medicine; ATTEND Internal Medicine
DX: F10.131 Alcohol abuse with withdrawal delirium (principal); E87.6 Hypokalemia; E83.42 Hypomagnesemia; R74.01 Elevation of levels of liver transaminase levels; D75.89 Other specified diseases of blood and blood-forming organs; J45.909 Unspecified asthma, uncomplicated; S05.92XA Unspecified injury of left eye and orbit, initial encounter; W18.09XA Striking against other object with subsequent fall, initial encounter; F17.290 Nicotine dependence, other tobacco product, uncomplicated; Z91.041 Radiographic dye allergy status; Z91.013 Allergy to seafood; Z91.048 Other nonmedicinal substance allergy status
CPT/HCPCS: 96361 ×2; 96366 ×2; 96372 ×2; 96365; 96375; 99285; 36415; 82747; 80053; 80048; 82607; 83735; 85025; 85027; 70450; G0378 ×2; J2060; J3411; J1650; J3475